=== PATIENT | female | born 1955 | race African-American/Black ===

== ENCOUNTER 2016-12-04 06:54 | Inpatient (IN) | payer OTHER ==
[~2016-12-04] VITALS: Ht 165.1 cm; Wt 55.3 kg
--- NOTE | ~2016-12-04 | HC ---
[facility] [place] [address] CONSULTATION Name: ARIN ANDRADE Room #: 407-P [facility] IN .R.#: [id number] Admission: 12/04/16 Attend Phys: Cody Prince MD Discharge: 12/05/16 Date of : 57 Report #: [id number] THIS REPORT FOR: //name// CC: Cody Adames DATE OF SERVICE: 12/04/2016 REASON FOR CONSULTATION: End-stage renal disease requiring hemodialysis. HISTORY OF PRESENT ILLNESS: This is a 61-year-old female who came in from the Emergency Room complaining originally of sore throat, but also some abdominal discomfort. She has end-stage renal disease and is a chronic hemodialysis patient. She dialyzes normally at the [facility] by Daniel. We have seen her on previous hospitalizations. She is due for dialysis on the afternoon of admission and she last dialyzed 2 days previously on 12/02/2016. The patient has end-stage renal disease and recently returned to dialysis. She had had a kidney transplant for about 12 years; that was originally done in [place], [place]. She started back on dialysis in 07/2016. During a recent hospitalization, during the middle of 10/2016, she was having worsening abdominal pain and we realized that she was having progressive rejection of her no longer used kidney transplant. She was eventually transferred to [facility] and she had a transplant nephrectomy of that kidney. She has been recovering from that, but it sounds like some of her abdominal discomfort is residual from that surgery. 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 PAST MEDICAL HISTORY: Kidney transplant, ESRD and lupus as noted above. She has had 2 prior hip transplants, appendectomy; bowel obstruction resulting in a colostomy placement, this is in the left lower quadrant. She also has some COPD. MEDICATIONS ON ADMISSION: Allopurinol 100 mg daily, amlodipine 5 mg daily, aspirin 81 mg daily, carvedilol 25 mg b.i.d., gabapentin 100 mg b.i.d., oxycodone, pantoprazole 40 mg b.i.d., prednisone 2.5 mg daily on a taper and she tacrolimus, although it can be stopped with her transplant nephrectomy. ALLERGIES: CEPHALASPORIN and COUMADIN. FAMILY HISTORY: Noncontributory. SOCIAL HISTORY: The patient is single, lives in [place], [place]. She is disabled. REVIEW OF SYSTEMS: Denies dyspnea, cough or chest pain. She says her most recent dialysis was uneventful. She is unaware of fevers, chills or sweats. She has been having some abdominal pain. No recent problems with edema. [facility] [address] [place] [address] CONSULTATION Name: ARIN ANDRADE Avis Room #: 407-P [facility] IN M.R.#: [id number] Admission: 12/04/16 Attend Phys: Cody Prince MD Discharge: 12/05/16 Date of : 57 Report #: [id number] PHYSICAL EXAMINATION: GENERAL: She is awake, alert and oriented, without substantial symptoms. VITAL SIGNS: Blood pressure 188/90, heart rate 78, temperature 98.3, respiratory rate is 18, oxygen saturation 97%. HEENT: Unremarkable. NECK: Shows her tunneled dialysis catheter in place. CHEST: Clear. CARDIOVASCULAR: Heart has a regular rate and rhythm. ABDOMEN: Has active bowel sounds. Her right lower quadrant incision has healed nicely, it is minimally tender. EXTREMITIES: Show no peripheral edema. NEUROLOGIC: She is grossly intact. LABORATORY DATA: Labs on admission, sodium 131, potassium 5.0, chloride 93, bicarbonate 22, BUN 26, creatinine 7.5, total bilirubin 0.8, lipase 120, calcium 10.0, alkaline phosphatase 128, AST 21, ALT 7, albumin 2.9, total protein 7.3, white count 8.7, hemoglobin 12.0, hematocrit 35.0 and platelets 198,000. ASSESSMENT: 1. End-stage renal disease. Due for dialysis later today (12/04/2016), orders have been placed and we will get her dialyzed. 2. Recent nephrectomy of right iliac kidney transplant. Again, she no longer needs to be on her tacrolimus immunosuppression. We will continue to taper her prednisone slowly. 3. Abdominal pain, no positive findings on exam today. 4. Hypertension. She needs dialysis and volume removal to control that. PLAN: 1. Dialysis later today. 2. We will follow along the patient's care. <ELECTRONICALLY SIGNED> By: Tanmay Tapia MD 12/08/16 0725 1241 2216 Tanmay Tapia MD /nt
[~2016-12-04 06:54] MED LIST: ALLOPURINOL 10100 M1 PO; AMLODIPINE BESYL5 MG PO; ASPIR 8181 MG PO; BYSTOLIC10 MG; CIPRO500 MG PO; COREG25 MG PO; DILAUDID1 MG/1 ML IV PUSH; FLAGYL500 MG PO; FLEXERIL PO; GABAPENTIN100 MG; K-DUR 20 MEQ T20 MEQ; LIPITOR40 MG; NORCO 7.5-3251 EACH PO; OXYCODONE HCL 55 MG PO; PERCOCET 5-3251 EACH PO; PREDNISONE 10 M10 M1 PO; PROTONIX40 M1 PO; TACROLIMUS1 MG; VANCOMYCIN100 MG/M1 PO; ZOFRAN ODT4 MG PO
[2016-12-04 06:56] VITALS: BP 233/102
[2016-12-04 07:28] LABS: MCH 32.1 pg (26.0-34.0); MCHC 34.3 g/dL (28.0-37.0); MCV 93.7 fL (80.0-100.0); PLATELET COUNT 198 thou/uL (150-400); RBC 3.73 mil/uL (4.20-5.00); RDW 20.6 % (10.5-14.5); WBC 8.7 thou/uL (4.0-11.0)
[2016-12-04 07:29] LABS: MANUAL DIFF YES
[2016-12-04 07:40] LABS: CREATININE 7.5 mg/dL (0.6-1.0)
[2016-12-04 07:44] LABS: ALBUMIN 2.9 g/dL (3.4-5.0); DIRECT BILIRUBIN 0.1 mg/dL (<0.1-0.3); TOTAL BILIRUBIN 0.8 mg/dL (<0.1-1.0); TOTAL PROTEIN 7.3 g/dL (6.4-8.2)
[2016-12-04 07:55] LABS: ABSOLUTE NEUTROPHILS 4.5 thou/uL (1.4-8.2); ANISOCYTOSIS 2+; ATYPICAL LYMPHS 1 %; TOTAL CELL COUNT 100
[2016-12-04 10:08] VITALS: BP 188/88
[2016-12-04 11:30] VITALS: BP 188/90
[2016-12-04 17:00] VITALS: BP 144/85
[2016-12-04 19:56] VITALS: BP 196/89
[2016-12-05] VITALS (11 sets, daily range): BP systolic 146–176; BP diastolic 67–88
[2016-12-05 05:15] LABS: ALBUMIN 2.6 g/dL (3.4-5.0); CALCIUM 9.8 mg/dL (8.5-10.1); MAGNESIUM 1.7 mg/dL (1.8-2.4); POTASSIUM 4.3 mmol/L (3.5-5.1); TOTAL BILIRUBIN 0.8 mg/dL (<0.1-1.0); TOTAL PROTEIN 6.5 g/dL (6.4-8.2)
[2016-12-05 05:51] LABS: CREATININE 5.6 mg/dL (0.6-1.0)
[2016-12-05] MEDS ORDERED: NYSTATIN 1100000 U/M PO (13:05)
[2016-12-05] MEDS ORDERED: LIDOCAINE VISC100 M1 PO (13:05)
== END 2016-12-05 16:30 | disposition home or self-care (01) | DRG 157 ==
LOC: ER 06:54 → 4N 09:08 → EROBS 09:08 → 4N 10:09
PROVIDERS: Emergency Medicine; Nurse Practitioner
PROC: 5A1D00Z (ICD-10-PCS; principal; 2016-12-04)
DX: B37.0 Candidal stomatitis (principal); N18.6 End stage renal disease; I12.0 Hypertensive chronic kidney disease with stage 5 chronic kidney disease or end stage renal disease; I16.1 Hypertensive emergency; E44.0 Moderate protein-calorie malnutrition; Z94.0 Kidney transplant status; J02.9 Acute pharyngitis, unspecified; F17.210 Nicotine dependence, cigarettes, uncomplicated; M32.9 Systemic lupus erythematosus, unspecified; Z96.649 Presence of unspecified artificial hip joint; J44.9 Chronic obstructive pulmonary disease, unspecified; E16.2 Hypoglycemia, unspecified; D63.8 Anemia in other chronic diseases classified elsewhere; Z79.82 Long term (current) use of aspirin; Z79.899 Other long term (current) drug therapy; Z90.49 Acquired absence of other specified parts of digestive tract; Z93.2 Ileostomy status; Z88.8 Allergy status to other drugs, medicaments and biological substances; Z93.3 Colostomy status; Z82.49 Family history of ischemic heart disease and other diseases of the circulatory system; Z68.20 Body mass index [BMI] 20.0-20.9, adult; Z99.2 Dependence on renal dialysis
CPT/HCPCS: 10091; 32100

== ENCOUNTER 2016-12-13 11:02 | Inpatient (IN) | payer OTHER ==
[~2016-12-13] VITALS: Ht 170.2 cm; Wt 48.2 kg
[2016-12-13] VITALS (9 sets, daily range): BP systolic 117–154; BP diastolic 61–118
--- NOTE | ~2016-12-13 | EEG ---
[facility] [place] [address] ELECTROENCEPHALOGRAM Name: ARIN ANDRADE Room #: 241-P ADM IN M.R.#: [id number] Admission: 12/13/16 Attend Phys: Spenser Mejia MD Discharge: Date of : 57 Report #: [id number] THIS REPORT FOR: //name// CC: Spenser Mejai [facility] physician/PCP DATE OF SERVICE: 12/13/2016 This patient is being evaluated for altered mental status. EEG is being done to further evaluate that. EEG was done by placing the electrodes by standard 10-20 system of electrode placement. Both referential and sequential montages were used for recording. The EEG is masked by a lot of artifact and is very difficult to interpret. Only small portion of this EEG is interpretable and that appeared to be showing a background activity of about 5-6 Hz and about 5-10 microvolts. Since the activity is low voltage and is masked by a lot of artifact, background activity is difficult to tell. I can tell when the patient is awake or asleep. Photic stimulation is unremarkable. IMPRESSION: This is a suboptimal EEG because it is intermixed with a lot of artifact. EEG is abnormal because it is very poorly formed. That is a nonspecific abnormality, which can occur with encephalopathy, effect of psychotropic medication, dementia, etc. Clinical correlation is recommended. Thank you very much for this referral. <ELECTRONICALLY SIGNED> By: Suleiman Black MD 12/14/16 0731 [id number] MD lissett Mendoza
--- NOTE | ~2016-12-13 | HC ---
[facility] [place] [address] CONSULTATION Name: ARIN ANDRADE Room #: 455-P ADM IN M.R.#: [id number] Admission: 12/13/16 Attend Phys: Spenser Mejia MD Discharge: Date of : 57 Report #: [id number] THIS REPORT FOR: //name// CC: Spenser Mejia [facility] physician/PCP DATE OF SERVICE: 12/14/2016 PATIENT IDENTIFICATION: This 61-year-old female with known end-stage renal disease is seen in renal consultation in the intensive care unit after presenting with loss of consciousness. She has a known history of chronic kidney disease and has been hospitalized recently at [facility]. She dialyzes at [facility]. She has a history of previous failed acute kidney transplant. She has had a previous small-bowel resection with a colostomy in the left lower quadrant. She has known dialysis, diet and medication noncompliance. The patient was brought in by her sister because she was unresponsive. She was in a state when initially presenting. PAST MEDICAL HISTORY: Remarkable for end-stage renal disease, on dialysis Thursday, and Thursday. She has a previous kidney transplant. She has a remote history of lupus. She has a previous colostomy. She has COPD and is status post prior cholecystectomy. MEDICATIONS: On admission include gabapentin, amlodipine, prednisone, tacrolimus, aspirin, pantoprazole, and carvedilol. ALLERGIES: Reported to CEPHALOSPORIN. PERSONAL AND SOCIAL HISTORY: The patient smokes an unknown quantity. She has no known prior history of alcohol or drug abuse. REVIEW OF SYSTEMS: Unobtainable. FAMILY HISTORY: Unobtainable. PHYSICAL EXAMINATION: GENERAL: Reveals a chronically ill, debilitated, poorly responsive female. She does open her eyes to command. She does move extremity symmetrically. HEENT: The head is normocephalic and atraumatic. The sclerae are white. The pharynx is benign. NECK: Supple. LUNGS: Lake are grossly clear to percussion and auscultation. CARDIOVASCULAR: Reveals a regular rate and rhythm. ABDOMEN: Reveals a colostomy in place, which is nontender. There is no [facility] [address] [place] [address] CONSULTATION Name: ARIN ANDRADE Room #: 455-[facility] IN [facility]#: [id number] Admission: 12/13/16 Attend Phys: Spenser Mejia MD Discharge: Date of : 57 Report #: [id number] surrounding erythema. NEUROLOGIC: Reveals the patient to be sluggishly responsive and quite lethargic. There is no evidence of focal neurologic deficit. LABORATORY STUDIES: Available at this time include sodium 142, potassium 5.0, chloride 105, CO2 of 28, BUN 32, creatinine , and glucose 110. White blood cell count 11,200, hemoglobin 11.2, hematocrit 33.8, and platelet count 73,000. ASSESSMENT: 1. End-stage renal disease, on maintenance hemodialysis. We will dialyze the patient on Thursday as there are no indications for acute dialysis at this time. Her dialysis compliance is unclear as of late. 2. Loss of consciousness with altered mental status, etiology unclear. 3. History of failed renal transplantation, on tapering immunosuppression. 4. Status post colostomy. PLAN: We will follow the patient closely and maintain dialysis support for her while hospitalized. Please see orders. <ELECTRONICALLY SIGNED> By: Zach Montoya MD 12/16/16 1721 0606 1238 Zach Montoya MD /nt
--- NOTE | ~2016-12-13 | HC ---
[facility] [place] [address] CONSULTATION Name: ARIN ANDRADE Room #: 455-P ADM IN .R.#: [id number] Admission: 12/13/16 Attend Phys: Spenser Mejia MD Discharge: Date of : 57 Report #: [id number] THIS REPORT FOR: //name// CC: Spenser Mejia [facility] physician/PCP DATE OF SERVICE: 12/17/2016 HISTORY OF PRESENT ILLNESS: The patient is a 61-year-old -Citizen [place] female with a prior history of noncompliance, end-stage renal disease, failed kidney transplant, and systemic lupus who was admitted with unresponsiveness. She was brought in by her sister. She was noted to have an encephalopathy post-seizure. She has been seen by neurology and is on Keppra. She also was noted to have aspiration pneumonia. Hypertension is of poor control and internal medicine is involved. We are seeing her in rehabilitation medicine consultation. PAST MEDICAL HISTORY: Includes end-stage renal disease, on maintenance hemodialysis, prior kidney transplant, which she was noted to have failed, history lupus, hypertension, status post colostomy for small-bowel resection, COPD, and cholecystectomy. MEDICATIONS: Please see the full medication listing. ALLERGIES: CEPHALOSPORIN. HABITS: Positive tobacco, no history of ETOH or drug abuse. SOCIAL HISTORY: Lives in an apartment alone, premorbid cane or walker ambulator. She notes she is planning on going to stay with her sister and she seems okay with that. Noted to have 4 steps in. FAMILY HISTORY: Noncontributory. REVIEW OF SYSTEMS: No current complaints of chest pain, shortness of breath, or abdominal discomfort. Complains of overall generalized weakness, both upper and lower extremities. She did not voice any complaints, headache or other complaints in this regard. PHYSICAL EXAMINATION: GENERAL: She is a 61-year-old -[place]izen [place] female, in no obvious distress. VITAL SIGNS: Last recorded temperature 98.3, pulse 77, respirations 18, and blood pressure 215/97. NEUROLOGIC: She is alert. There is a definite latency to her responses and she appears unsure some of her answers. She does follow basic 1 step commands. Facies are symmetric. She is of slender build. [facility] [address] [place] [address] CONSULTATION Name: ARIN ANDRADE Room #: 455-[facility] IN ..#: [id number] Admission: 12/13/16 Attend Phys: Spenser Mejia MD Discharge: Date of : 57 Report #: [id number] EXTREMITIES: She has functional range of motion of both upper and lower extremities. Strength is grade 3+/5. DTRs are trace to 1. Lower extremities, no focal calf swelling, functional range of motion with strength grade 3+/5. DTRs are trace to 1. There is no clonus. Sensation appeared reasonably intact large toe to proprioception. There is no focal calf swelling. No distal lower extremity edema. She has the prior left colostomy bag as far as her abdomen. Functionally, she is max assist for sitting balance, supine to sit is max assist, bed mobility is mod to max assist. She has sat at the edge of bed for 4 minutes. ASSESSMENT: A 61-year-old -Citizen [place] female with the following problem list: 1. Toxic metabolic encephalopathy. There may be a hypoxic component as well and she is noted to be post-seizure. 2. End-stage renal disease. 3. Failed kidney transplant. 4. Lupus erythematosus. 5. Prior colostomy for small-bowel obstruction. 6. Tobacco abuse. 7. Initial unresponsiveness for which she was admitted. 8. Aspiration pneumonia. PLAN: Therapy evaluations are continuing. We are assessing her tolerance and functional needs regarding rehabilitation. I am uncertain at this time if she will be a [address] [place] [address] rehabilitation candidate, but we will follow along with you and see how she does. By: 1142 1556 Erasmo Dunn MD /nt
--- NOTE | ~2016-12-13 | H ---
[facility] [place] [address] HISTORY AND PHYSICAL Name: ARIN ANDRADE Room #: 241-P ADM IN M.R.#: [id number] Admission: 12/13/16 Attend Phys: Spenser Mejia MD Discharge: Date of : 57 Report #: [id number] THIS REPORT FOR: //name// CC: Spenser Mejia [facility] physician/PCP REASON FOR ADMISSION: Found unresponsive. HISTORY OF PRESENT ILLNESS: The history was obtained from reviewing the previous medical record, she is well known to me. Unfortunately, this is a very noncompliant patient with past medical history of end-stage renal disease, failed kidney transplantation, lupus. She dialyzes with [facility]. She had a small bowel resection with colostomy in the left lower quadrant. I have known her from 2 previous hospitalizations. She keeps coming in with elevated blood pressure, tachycardia. She was ruled out for sepsis in the past. She was brought by her sister because she was unresponsive. Unfortunately, the patient was found also to not have her colostomy bag and stool was all over her body. She is not able to provide me with any detailed history previously. She was maintained on chronic immunosuppression and she was thought to have what seems to be rejection. She did not have any nephrectomies of the transplanted kidney. On presentation to the emergency room, she was found to be hypoxemic. She was also found to have elevated white blood cell count at 18,000. As I have mentioned, unfortunately the details of the current history of present illness are not available. PAST MEDICAL HISTORY: 1. End-stage renal disease, maintained on dialysis every Thursday, Thursday. 2. Kidney transplant. 3. Lupus. 4. Hypertension. 5. Status post colostomy for small-bowel resection. 6. COPD. 7. Cholecystectomy. LISTED MEDICATIONS: 1. Gabapentin. 2. Amlodipine. 3. Prednisone. 4. Tacrolimus. 5. Aspirin. 6. Pantoprazole. 7. Carvedilol. ALLERGIES: Listed to CEPHALOSPORINS. SOCIAL HISTORY: She continues to smoke. No drug or alcohol abuse. [facility] [address] [place] [address] HISTORY AND PHYSICAL Name: ARIN ANDRADE Avis Room #: 241-P [facility].#: [id number] Admission: 12/13/16 Attend Phys: Spenser Mejia MD Discharge: Date of : 57 Report #: [id number] REVIEW OF SYSTEMS: Unobtainable given the patient's chronic current medical conditions. PHYSICAL EXAMINATION: GENERAL: She is completely disoriented to time, place, person. VITAL SIGNS: Blood pressure was 170/90. She was tachycardic with a . HEAD AND NECK: Dry mucous membrane. CHEST: Decreased air entry bilaterally with crackles. There is a left IJ tunneled catheter. CARDIOVASCULAR: Tachycardic with a soft systolic murmur. ABDOMEN: Left colostomy with no bag . LOWER EXTREMITIES: No edema. LABORATORY VALUES: Reviewed. Lactic acid 2.4. BMP from today revealed a potassium of 4.1, BUN is 26 and a creatinine of 7.7. Calcium was markedly elevated. White blood cell 18,000. Hemoglobin 15.8. EKG with no acute changes. Blood gas with hypoxia. ASSESSMENT, IMPRESSION AND PLAN: 1. End-stage renal disease. 2. Tachycardia. 3. Encephalopathy. 4. Elevated white blood cell count. 5. History of failed kidney transplant. 6. Immunosuppressive status. 7. Central stenosis. 8. Status post left IJ tunneled catheter. 9. Noncompliance. This is a very similar presentation to her presentation in the past. 1. Admission. 2. Blood cultures. 3. Appropriate antibiotic therapy. 4. We will give one dose of vancomycin and start on Zosyn. 5. Blood pressure control. 6. We will gave 1 liter normal saline given her hemoglobin and calcium values consistent with dehydration. 7. Nephrology consultations. 8. She previously had what seems to be transplant rejection. Repeat CT revealed the transplant kidney is completely atrophic. We will keep her on low dose immunosuppressive medications. [address] [address] HISTORY AND PHYSICAL Name: ARIN ANDRADE Room #: [facility] IN ..#: [id number] Admission: 12/13/16 Attend Phys: Spenser Mejia MD Discharge: Date of : 57 Report #: [id number] This is a difficult situation with recurrent admissions, recurrent social issues that will need to be addressed with the social workers and the case finisher. <ELECTRONICALLY SIGNED> By: Spenser Mejia MD 12/14/16 0738 1303 1504 Spenser Mejia MD /nt
--- NOTE | ~2016-12-13 | EKG ---
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: YIFAN : 1955 Requested By: Myron Puentes Order Number: [id number] MD: Everardo Singh Measurements Intervals [place] Rate: 124 P: 103 CT: 157 QRS: 94 QRSD: 73 T: 30 QT: 335 QTc: 482 Interpretive Statements Sinus tachycardia Right axis deviation Consider left ventricular hypertrophy Compared to ECG 09/24/2016 15:39:47 Right-axis deviation now present Electronically Signed On 12-14-2016 11:04:12 CDT by Everardo Singh [email or web address] <ELECTRONICALLY SIGNED> By: Everardo Singh MD 12/14/16 1104 D: 04/1115 15 Everardo Singh MD /LEOPOLDO
[~2016-12-13 11:02] MED LIST changes: +LIDOCAINE VISC100 M1 PO; +NYSTATIN 1100000 U/M PO
[2016-12-13 11:32] LABS: ABG SAMPLE TYPE ARTERIAL; BE(vivo) 3.5 mmol/L (-2 to +3); HCO3 26.5 mmol/L (22.0-26.0); LACTATE 2.51 mmol/L (0.5-2.0); O2(CT) 21.1 mL/dL (15.0-23.0); O2Hb 91.8 % (92.0-98.0); PCO2 35.3 mmHg (35.0-45.0); PO2 70.1 mmHg (80.0-100.0); pH 7.493 (7.360-7.450); sO2 95.4 % (92.0-98.0); tCO2 27.6 mmol/L (24.0-30.0)
[2016-12-13 11:33] LABS: STICK SITE R.RADIAL
[2016-12-13 12:37] LABS: HEMATOCRIT 48.4 % (37.0-47.0); HEMOGLOBIN 15.8 gm/dL (12.0-15.0); MCH 30.2 pg (26.0-34.0); MCHC 32.6 g/dL (28.0-37.0); MCV 92.5 fL (80.0-100.0); RBC 5.23 mil/uL (4.20-5.00)
[2016-12-13 12:41] LABS: MANUAL DIFF YES
[2016-12-13 12:48] LABS: POTASSIUM 4.1 mmol/L (3.5-5.1)
[2016-12-13 12:50] LABS: CALCIUM 12.2 mg/dL (8.5-10.1)
[2016-12-13 12:52] LABS: CREATININE 7.7 mg/dL (0.6-1.0)
[2016-12-13 13:06] LABS: ABSOLUTE NEUTROPHILS 14.6 thou/uL (1.4-8.2); ANISOCYTOSIS 1+; TOTAL CELL COUNT 100
[2016-12-13 13:07] LABS: POLYCHROMASIA OCCASIONAL
[2016-12-13 13:14] LABS: PLATELET COUNT 99 thou/uL (150-400)
[2016-12-13 13:34] LABS: ALBUMIN 2.6 g/dL (3.4-5.0); CALCIUM 11.7 mg/dL (8.5-10.1); CREATININE 7.6 mg/dL (0.6-1.0); PHOSPHORUS 5.8 mg/dL (2.5-4.9); POTASSIUM 4.2 mmol/L (3.5-5.1)
[2016-12-13 22:27] LABS: ABG SAMPLE TYPE ARTERIAL; BE(vivo) -0.9 mmol/L (-2 to +3); HCO3 23.2 mmol/L (22.0-26.0); LACTATE 1.77 mmol/L (0.5-2.0); O2(CT) 17.1 mL/dL (15.0-23.0); O2Hb 90.1 % (92.0-98.0); PCO2 36.6 mmHg (35.0-45.0); PO2 62.5 mmHg (80.0-100.0); sO2 92.5 % (92.0-98.0); tCO2 24.3 mmol/L (24.0-30.0)
[2016-12-13 22:28] LABS: STICK SITE L.BRACHIAL
[2016-12-14] VITALS (16 sets, daily range): BP systolic 122–179; BP diastolic 54–117
[2016-12-14 04:29] LABS: HEMATOCRIT 33.8 % (37.0-47.0); MCH 30.9 pg (26.0-34.0); MCV 93.5 fL (80.0-100.0); RBC 3.62 mil/uL (4.20-5.00); RDW 19.7 % (10.5-14.5); WBC 11.2 thou/uL (4.0-11.0)
[2016-12-14 04:33] LABS: HEMOGLOBIN 11.2 gm/dL (12.0-15.0)
[2016-12-14 08:16] LABS: CALCIUM 9.9 mg/dL (8.5-10.1); CREATININE 8.1 mg/dL (0.6-1.0)
[2016-12-15 00:09] VITALS: BP 153/75
[2016-12-15 04:13] VITALS: BP 170/98
[2016-12-15 07:57] LABS: HEMOGLOBIN 10.2 gm/dL (12.0-15.0); MCHC 32.9 g/dL (28.0-37.0); MCV 94.1 fL (80.0-100.0); RBC 3.3 mil/uL (4.20-5.00); RDW 19.7 % (10.5-14.5); WBC 8.9 thou/uL (4.0-11.0)
[2016-12-15 08:05] VITALS: BP 147/64
[2016-12-15 08:12] LABS: ALBUMIN 2.1 g/dL (3.4-5.0); CALCIUM 9.7 mg/dL (8.5-10.1); POTASSIUM 3.9 mmol/L (3.5-5.1); TOTAL BILIRUBIN 0.6 mg/dL (<0.1-1.0)
[2016-12-15 08:13] LABS: CREATININE 9.2 mg/dL (0.6-1.0)
[2016-12-15 11:04] VITALS: BP 185/87
[2016-12-15 15:48] VITALS: BP 147/63
[2016-12-15 19:10] VITALS: BP 145/63
[2016-12-16 04:01] VITALS: BP 181/76
[2016-12-16 07:27] VITALS: BP 182/81
[2016-12-16 17:48] VITALS: BP 178/78
[2016-12-16 19:59] VITALS: BP 164/70
[2016-12-17 04:19] VITALS: BP 218/93
[2016-12-17 05:44] VITALS: BP 188/72
[2016-12-17 12:55] VITALS: BP 162/81
[2016-12-17 16:42] VITALS: BP 174/74
[2016-12-17 19:33] VITALS: BP 156/79
[2016-12-18 00:06] VITALS: BP 158/74
[2016-12-18 05:38] VITALS: BP 173/86
[2016-12-18 08:50] VITALS: BP 161/70
[2016-12-18 12:46] VITALS: BP 149/61
[2016-12-18] MEDS ORDERED: CLONIDINE0.1 PO (13:35)
[2016-12-18] MEDS ORDERED: COZAAR 50 MG TA50 M1 PO (13:35)
[2016-12-18] MEDS ORDERED: KEPPRA 500 MG500 M1 PO (13:36)
[2016-12-18] MEDS ORDERED: AUGMENTIN 875875 MG PO (13:41)
[2016-12-18 17:33] VITALS: BP 171/81
== END 2016-12-18 17:57 | DRG 177 ==
LOC: ER 11:02 → EROBS 13:09 → 4W 13:09 → ICU 16:00 → 4W 12-14 12:20
PROVIDERS: Emergency Medicine; Hospitalist; Nurse Practitioner; Physician Assistant
PROC: 5A1D60Z (ICD-10-PCS; principal; 2016-12-18)
DX: J69.0 Pneumonitis due to inhalation of food and vomit (principal); N18.6 End stage renal disease; G92 Toxic encephalopathy; I12.0 Hypertensive chronic kidney disease with stage 5 chronic kidney disease or end stage renal disease; Z94.0 Kidney transplant status; R56.9 Unspecified convulsions; Z96.649 Presence of unspecified artificial hip joint; F17.210 Nicotine dependence, cigarettes, uncomplicated; D69.6 Thrombocytopenia, unspecified; D64.9 Anemia, unspecified; E83.52 Hypercalcemia; E16.2 Hypoglycemia, unspecified; L93.0 Discoid lupus erythematosus; J44.9 Chronic obstructive pulmonary disease, unspecified; Z91.19 Patient's noncompliance with other medical treatment and regimen; Z99.2 Dependence on renal dialysis; Z93.3 Colostomy status; Z88.1 Allergy status to other antibiotic agents; Z90.49 Acquired absence of other specified parts of digestive tract; Z88.8 Allergy status to other drugs, medicaments and biological substances; Z93.2 Ileostomy status
CPT/HCPCS: 10045; 10203; 32100

== ENCOUNTER 2016-12-29 08:32 | Emergency (ER) | payer OTHER ==
[~2016-12-29] VITALS: Ht 160 cm; Wt 45.4 kg
[~2016-12-29 08:32] MED LIST changes: +AUGMENTIN 500-1 EACH PO; +AUGMENTIN 875875 MG PO; +CARVEDILOL6.25 MG PO; +CLONIDINE0.1 PO; +COZAAR 50 MG TA50 M1 PO; +KEPPRA 500 MG500 M1 PO
[2016-12-29 10:05] LABS: CALCIUM 9.2 mg/dL (8.5-10.1); CREATININE 10.1 mg/dL (0.6-1.0)
[2016-12-29 10:08] LABS: POTASSIUM 5.2 mmol/L (3.5-5.1)
[2016-12-29 12:39] VITALS: BP 157/74
== END 2016-12-29 15:39 | disposition home or self-care (01) ==
LOC: ER 08:32
PROVIDERS: Emergency Medicine
DX: Z49.01 Encounter for fitting and adjustment of extracorporeal dialysis catheter (principal); M32.9 Systemic lupus erythematosus, unspecified; Z96.649 Presence of unspecified artificial hip joint; I10 Essential (primary) hypertension; J45.909 Unspecified asthma, uncomplicated; Z90.49 Acquired absence of other specified parts of digestive tract; Z98.890 Other specified postprocedural states; Z86.69 Personal history of other diseases of the nervous system and sense organs; Z88.1 Allergy status to other antibiotic agents; Z88.8 Allergy status to other drugs, medicaments and biological substances; F17.210 Nicotine dependence, cigarettes, uncomplicated

== ENCOUNTER 2017-06-24 12:50 | Emergency (ER) | payer OTHER ==
[~2017-06-24] VITALS: Ht 160 cm; Wt 51.7 kg
--- NOTE | ~2017-06-24 | EKG ---
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
[~2017-06-24 12:50] MED LIST changes: +ATORVASTATIN CA40 MG PO; +CARAFATE 1 GM TA1 G1 PO; +CLONAZEPAM 0.50.5 M1 PO; +ELIQUIS2.5 MG PO; +NORCO 5-325 TA1 EACH PO; +PROZAC20 MG PO
[2017-06-24 13:40] LABS: HEMATOCRIT 36.4 % (37.0-47.0); HEMOGLOBIN 12.2 gm/dL (12.0-15.0); MCH 29.5 pg (26.0-34.0); MCHC 33.4 g/dL (28.0-37.0); MCV 88.3 fL (80.0-100.0); RBC 4.12 mil/uL (4.20-5.00); RDW 18.3 % (10.5-14.5)
[2017-06-24 13:44] LABS: ANION GAP 10 mmol/L (7-16); BUN 34 mg/dL (7-18); CALCIUM 9.5 mg/dL (8.5-10.1); CHLORIDE 98 mmol/L (98-107); CO2 28 mmol/L (21-32); CREATININE 8.4 mg/dL (0.6-1.0); GLUCOSE 78 mg/dL (74-106); POTASSIUM 4.8 mmol/L (3.5-5.1); SODIUM 136 mmol/L (136-145)
[2017-06-24 13:53] LABS: TROPONIN-I < 0.04 ng/mL (<0.06)
== END 2017-06-24 17:34 | disposition home or self-care (01) ==
LOC: ER 12:50
PROVIDERS: Emergency Medicine
DX: E83.42 Hypomagnesemia (principal); R55 Syncope and collapse; R51 Headache; M32.9 Systemic lupus erythematosus, unspecified; I10 Essential (primary) hypertension; J44.9 Chronic obstructive pulmonary disease, unspecified; F17.210 Nicotine dependence, cigarettes, uncomplicated; Z90.49 Acquired absence of other specified parts of digestive tract; Z88.1 Allergy status to other antibiotic agents; Z88.8 Allergy status to other drugs, medicaments and biological substances

== ENCOUNTER 2017-10-30 08:18 | Inpatient (IN) | payer OTHER ==
[~2017-10-30] VITALS: Ht 160 cm; Wt 60.6 kg
--- NOTE | ~2017-10-30 | HC ---
[facility] [place] [address] CONSULTATION Name: ARIN ANDRADE Room #: 356-P ADM IN M.R.#: [id number] Admission: 10/30/17 Attend Phys: Lukas Aponte MD Discharge: Date of : 57 Report #: [id number] THIS REPORT FOR: //name// CC: Lukas Oakley REASON FOR CONSULTATION: End-stage renal disease. REASON FOR PRESENTATION: Abdominal pain. HISTORY OF PRESENT ILLNESS: This is a very well-known patient to me. She is status post failed kidney transplant with noncompliance. She is maintained on hemodialysis every Thursday, and Thursday. She has a very complicated hospital course with repeated hospitalizations for numerous issues including C. diff colitis, what was thought to be rejection of her kidney in the past, central stenosis of her central vessels. She had known seizures too. She dialyzes every Thursday, and Thursday. She missed her dialysis yesterday because of abdominal pain. She presented to the Emergency Room with right-sided abdominal pain. She describes the pain as crampy. This was radiating to the right flank area. Along with that, she reported that she had some blood streaks with her bowel movement. No nausea or vomiting, but she had decreased p.o. intake. She denies fever. She is admitted for further evaluation and management after the CT showed some abnormalities and those are well delineated in the CT report. I am being asked to manage her end-stage renal disease. PAST MEDICAL HISTORY: 1. End-stage renal disease. 2. Central venous stenosis 3. Seizure disorder. 4. Status post colostomy. 5. Bilateral hip prosthesis. 6. Failed kidney transplant. 7. Appendicitis. 8. Hypertension. 9. Cholecystectomy. 10. Cataract surgeries. 11. Remote history of atrial fibrillation. 12. Questionable history of DVT in the past. SOCIAL HISTORY: She is an everyday smoker. She used marijuana couple of weeks ago. FAMILY HISTORY: Significant for hypertension. MEDICATIONS: 1. Prednisone. [facility] [address] [place] [address] CONSULTATION Name: ARIN ANDRADE Room #: 356-[facility] IN ..#: [id number] Admission: 10/30/17 Attend Phys: Lukas Aponte MD Discharge: Date of : 57 Report #: [id number] 2. Eliquis. 3. Atorvastatin. 4. Keppra. REVIEW OF SYSTEMS: GENERAL: No fever or chills. CARDIOVASCULAR: No chest pain or palpitation. PULMONARY: No cough or hemoptysis. GASTROINTESTINAL: As per the history of present illness. PHYSICAL EXAMINATION: GENERAL: She is alert and oriented. VITAL SIGNS: Blood pressure is as expected elevated at 195/140. HEAD AND NECK: Poor dental hygiene with a left-sided IJ catheter. CHEST: No crackles. CARDIOVASCULAR: Regular with no rub. ABDOMEN: Slight tenderness in the right iliac fossa. Scar from the previous surgeries. Colostomy present. LABORATORY DATA: Laboratory values reviewed. Most recent labs revealed a sodium of 138, potassium 3.9, chloride 99, carbon dioxide 25, BUN 52 and creatinine 12.4. White blood cell count was 6.0 and hemoglobin is 12.4. ASSESSMENT, IMPRESSION AND PLAN: 1. End-stage renal disease. 2. Hypertension. 3. Abdominal pain. 4. Failed kidney transplant. 5. Noncompliance. 6. Clostridium difficile colitis in the past. 7. Status post colostomy for bowel blockage. 8. Deep venous thrombosis and pulmonary embolism in the past. 9. Central stenosis. 10. Abnormal CT scan findings as delineated in the CT report. 11. We will arrange for the patient to have dialysis today. Discussed with the GI team, plan is to proceed with colonoscopy tomorrow. Surgery will evaluate. Resume seizure medications. 12. ____ lesion seems to be collateral vessels from her central stenosis and possible inferior vena cava occlusion given the fact that she has occluded almost all of her central veins in the past including both upper and lower extremities. 13. GI is working her abdominal pain and ruling out C. diff. She has history of [address] [address] CONSULTATION Name: ARIN ANDRADE Room #: 356-P [facility] IN ..#: [id number] Admission: 10/30/17 Attend Phys: Lukas Aponte MD Discharge: Date of : 57 Report #: [id number] narcotic abuse in the past and I am not really sure if this is the current case or not. <ELECTRONICALLY SIGNED> By: Spenser Mejia MD 10/31/17 1151 1842 0423 Spenser Mejia MD /nt
--- NOTE | ~2017-10-30 | S ---
[facility] [place] [address] SURGICAL PATH RPT PROCEDURE Name: BERNARDA ARECHIGA Room #: 349-I ADM IN M.R.#: [id number] Admission: 10/30/17 Date of : 57 Discharge: Report #: [id number] Path Case #: [id number] PATHOLOGY REPORT COLLECTION DATE: 11/02/2017 RECEIVED DATE: 11/02/2017 SUBMITTING PHYS: Dr. Madi Zimmerman OTHER PHYS: Dr. Lukas Oakley SPECIMEN(S) RECEIVED: A.Random colon bx B.Polyp at splenic flexure C.Polyp x2 at sigmoid colon * * * * * * * * * * * * FINAL DIAGNOSIS: A. Large intestine mucosa, random colon rule out ischemia versus colitis, endoscopic biopsy: - Mild active colitis (please see comment). - Negative for dysplasia or malignancy. B. Polyp, at splenic flexure, endoscopic biopsy: - Inflamed tubular adenoma. - Negative for high-grade dysplasia. C. Polyp x 2, sigmoid colon, endoscopic biopsy: - Minute tubular adenoma identified in both fragments sampled. - Negative for high-grade dysplasia. COMMENT: Examination shows acutely inflamed foci within the surface epithelium, as well as scattered cryptitis. The lamina propria cellularity is moderately increased with abundant lymphocytes, abundant plasma cells, as well as an occasional eosinophil. There are no crypt abscesses present. There are no granulomata or parasitic organisms present. Architectural abnormalities are not identified as well. Overall, findings are suggestive of mild active colitis. The differential diagnosis includes active colitis, early inflammatory bowel disease, infectious-type colitis, acute diverticulitis, as well as medication-induced colitis. Findings to suggest ischemic colitis are not present. Please correlate clinically. (IUV:mgr; 11/03/2017) PATHOLOGIST: Brandi Brandt M.D. REPORT ELECTRONICALLY SIGNED BY: Brandi Brandt M.D. DATE/TIME: 11/03/2017 17:19 [address] [place] [address] [place] [address] SURGICAL PATH RPT PROCEDURE Name: BERNARDA ARECHIGA Room #: 349I [facility]#: [id number] Admission: 10/30/17 Date of : 57 Discharge: Report #: [id number] Path Case #: [id number] * * * * * * * * * * * * GROSS PATHOLOGY: A. Received in formalin labeled "Bernarda Arechiga, random colon BX, rule out ischemia versus colitis," are 5 segments of dixon soft tissue measuring 1.7 x 1.3 x 0.3 cm in aggregate dimensions and ranging from 0.3 to 0.5 cm in maximum dimension. The specimen is submitted entirely in cassette A1. B. Received in formalin labeled "Bernarda Arechiga, polyp at splenic flexure," is a segment of dixon soft tissue measuring 0.5 cm in maximum dimension. The specimen is submitted entirely in cassette B1. C. Received in formalin labeled "Bernarda Arechiga, polyp 2 at sigmoid colon," are 2 segments of dixon soft tissue measuring 0.5 x 0.2 x 0.2 cm in aggregate dimensions and ranging from 0.2-0.3 cm in maximum dimension. The specimen is submitted entirely in cassette C1. (TSD; 11/02/2017) CLINICAL HISTORY: Pre-OP DX: Abdominal pain, loose stool, abnormal CT, blood streaked stool Post-OP DX: Colon polyps, diverticulosis INITIAL CPT CODE(S): A; 45897 B; 50401 C; 88656 Professional services performed by [facility] at [facility] [address], [place] [address] Technical services performed by [facility] at [address] [place] [address], [address], [place] [address]. [facility] [address] [place] [address] PHONE: [phone] DIRECTOR: Jeferson Yepez M.D. * * * END OF REPORT * * *
--- NOTE | ~2017-10-30 | EKG ---
[address] [address] ELECTROCARDIOGRAM REPORT Name: ASTRID ANDRADENCISHAN Albarran Room #: 356- ADM IN M.R.#: [id number] Admission: 10/30/17 Attend Phys: Lukas Aponte MD Discharge: Date of : 57 Report #: [id number] THIS REPORT FOR: //name// [facility] Test Date: 2017-10-30 Test Time: 22:46:16 Pat Name: ARIN ANDRADE Department: Room: 356 Gender: F Pediatric Dermatologist: elizabeth : 1955 Requested By: Andressa Leon Order Number: [id number] MD: James Evans Measurements Intervals [place] Rate: 68 P: 87 SD: 194 QRS: 78 QRSD: 88 T: 58 QT: 465 QTc: 495 Interpretive Statements Sinus rhythm Probable left atrial enlargement Probable left ventricular hypertrophy Compared to ECG 06/25/2017 13:44:51 T-wave abnormality no longer present ST (T wave) deviation no longer present Electronically Signed On 10-31-2017 13:27:08 ETIOLOGY TEACHER by James Evans [email or web address] <ELECTRONICALLY SIGNED> By: James Evans MD 10/31/17 1327 [id number] James Evans MD /EPI
--- NOTE | ~2017-10-30 | HC ---
[facility] [place] [address] CONSULTATION Name: ARIN ANDRADE Room #: 356-P ADM IN M.R.#: [id number] Admission: 10/30/17 Attend Phys: Lukas Aponte MD Discharge: Date of : 57 Report #: [id number] THIS REPORT FOR: //name// CC: Lukas Oakley DATE OF SERVICE: 10/30/2017 GENERAL SURGERY CONSULT NOTE REFERRING PROVIDER: Ryley Phillips MD REASON FOR CONSULT: Abdominal pain. HISTORY OF PRESENT ILLNESS: The patient is a 62-year-old female with a history of end-stage renal disease, lupus, failed kidney transplant and history of an ostomy formation with C. diff in the past. It is unknown why the patient truly received an ostomy as the patient is not the best historian. Nonetheless, the patient was residing at [facility], where she has been transitioned to the Emergency Room for her right upper and right lower abdominal pain that has been persistent since Thursday. The patient states the pain radiates to her back and as such, a CT scan of the abdomen and pelvis was obtained showing unusual enhancement in two areas of the liver as well as the possibility of ischemic right colon changes. There is no perforation, no abscess and no free fluid, otherwise. Dr. Phillips is planning for a bowel prep and colonoscopy tomorrow, but due to the possibility of ischemic colitis, I am asked to evaluate as well today. PAST MEDICAL HISTORY: End-stage renal disease, on dialysis; hypertension, lupus, seizure disorder, prior C. diff colitis, ileostomy placement for unknown reasoning. PAST SURGICAL HISTORY: Prior cholecystectomy, total hip replacement, failed kidney transplant, and an ileostomy placement. HOME MEDICATIONS: Prednisone. Eliquis, Prozac, Lipitor, clonazepam, carvedilol, oxycodone IR, Protonix, clonidine, Keppra, hydrocodone and Zofran. ALLERGIES: TO CEPHALOSPORINS AND COUMADIN. FAMILY HISTORY: Reviewed and noncontributory. SOCIAL HISTORY: The patient does smoke 1 pack of cigarettes daily. Denies any alcohol or illicit drug use. REVIEW OF SYSTEMS: [facility] [address] [place] [address] CONSULTATION Name: ARIN ANDRADE Room #: 356-P [facility] IN [facility]#: [id number] Admission: 10/30/17 Attend Phys: Lukas Aponte MD Discharge: Date of : 57 Report #: [id number] GENERAL: The patient denies nocturnal fevers or chills. HEENT: No change in vision, change in hearing. NECK: No swelling or difficulty swallowing. HEART: No chest pain or palpitations. LUNGS: No cough or shortness of breath. ABDOMEN: Abdominal pain, but no nausea or vomiting. GENITOURINARY: No dysuria or hematuria. ENDOCRINE: No polyuria or polydipsia. HEMATOLOGIC: No history of bleeding or easy bruising. EXTREMITIES: No history of weakness or limited range of motion. NEUROLOGIC: No history of syncope or near syncopal episodes. SKIN AND INTEGUMENT: No history of abnormal lesions or moles. PSYCHIATRIC: No history of anxiety or depression. PHYSICAL EXAMINATION: VITAL SIGNS: Temperature 36.6, pulse 66, respirations 16, blood pressure 171/68. GENERAL: Alert, in no acute distress. HEENT: Normocephalic, atraumatic. Pupils equal, round, reactive to light. NECK: Supple, without lymphadenopathy. Trachea midline. HEART: Regular rate and rhythm. LUNGS: Clear to auscultation bilaterally. ABDOMEN: Soft, nondistended. She does have diffuse tenderness to palpation that is not localizable. She does have an ileostomy that is pink, patent and functional and has normal bowel sounds. GENITOURINARY: Normal external female genitalia. EXTREMITIES: No clubbing, cyanosis or edema. NEUROLOGIC: Cranial nerves 2-12 are grossly intact. PSYCHIATRIC: Normal mood and affect. SKIN AND INTEGUMENT: No abnormal lesions or moles. LABORATORY AND X-RAY DATA: CBC shows white blood cell count 6.0 thousand, hemoglobin 12.4, platelets 148,000. Creatinine is 12.4 consistent with renal disease. Albumin is 3.2. Liver function enzymes are normal. Lactic acid normal at 0.5. CT scan of the abdomen and pelvis shows unusual enhancement pattern in two regions of the liver that are suspected to be a perfusion artifact. In addition, there might be some right colon wall thickening. The CT scan appears to show that the patient's ostomy is actually a left-sided descending colostomy. ASSESSMENT AND PLAN: A 62-year-old female with renal disease and blood per ostomy, who presents with abdominal pain on the right side and possible thickening of the right colon. At this time, Dr. Phillips is prepping the patient for colonoscopy tomorrow, which I agree completely with. Imperative that she does not lose too much blood volume during dialysis, as I could exacerbate any ischemic colitis changes. In addition, the patient is being [facility] [address] [place] [address] CONSULTATION Name: ARIN ANDRADE Room #: 356-P ADM IN M.R.#: [id number] Admission: 10/30/17 Attend Phys: Lukas Aponte MD Discharge: Date of : 57 Report #: [id number] initiated on IV antibiotic therapy, which I recommend continuation of. I sincerely appreciate this consult. I will follow closely and leave any further recommendations post-colonoscopy in the patient's chart as appropriate. <ELECTRONICALLY SIGNED> By: James Ace MD, FACS 10/31/17 1041 [id number] [id number] James Ace MD, FACS /nt
[2017-10-30 08:19] VITALS: BP 210/104
[2017-10-30 09:29] LABS: ABSOLUTE NEUTROPHILS 3.9 thou/uL (1.4-8.2); EOSINOPHILS 2.5 % (0.0-3.0); HEMATOCRIT 37.8 % (37.0-47.0); HEMOGLOBIN 12.4 gm/dL (12.0-15.0); LYMPHOCYTES 20.7 % (24.0-44.0); MCH 29.3 pg (26.0-34.0); MCHC 32.8 g/dL (28.0-37.0); MCV 89.5 fL (80.0-100.0); MONOCYTES 10.8 % (1.0-8.0); PLATELET COUNT 148 thou/uL (150-400); RBC 4.23 mil/uL (4.20-5.00); RDW 19.9 % (10.5-14.5)
[2017-10-30 10:11] LABS: CALCIUM 9.3 mg/dL (8.5-10.1); CREATININE 12.4 mg/dL (0.6-1.0); POTASSIUM 3.9 mmol/L (3.5-5.1)
[2017-10-30 10:17] LABS: ALBUMIN 3.2 g/dL (3.4-5.0); DIRECT BILIRUBIN 0.1 mg/dL (<0.1-0.3); TOTAL BILIRUBIN 0.4 mg/dL (<0.1-1.0); TOTAL PROTEIN 6.7 g/dL (6.4-8.2)
[2017-10-30 12:00] VITALS: BP 196/94
[2017-10-30 12:09] VITALS: BP 195/104
[2017-10-30 15:38] VITALS: BP 171/68
[2017-10-30 23:04] LABS: HEMATOCRIT 40.3 % (37.0-47.0); HEMOGLOBIN 13.4 gm/dL (12.0-15.0); MCH 29.8 pg (26.0-34.0); MCHC 33.3 g/dL (28.0-37.0); MCV 89.5 fL (80.0-100.0); PLATELET COUNT 124 thou/uL (150-400); RDW 19.7 % (10.5-14.5)
[2017-10-30 23:19] LABS: ANION GAP 9 mmol/L (7-16); BUN 12 mg/dL (7-18); CALCIUM 9.4 mg/dL (8.5-10.1); CHLORIDE 99 mmol/L (98-107); CO2 28 mmol/L (21-32); GLUCOSE 77 mg/dL (74-106); POTASSIUM 3.4 mmol/L (3.5-5.1); SODIUM 136 mmol/L (136-145); TROPONIN-I < 0.04 ng/mL (<0.06)
[2017-10-30 23:33] LABS: CREATININE 4.4 mg/dL (0.6-1.0)
[2017-10-30 23:34] VITALS: BP 189/108
[2017-10-31 00:27] LABS: ABSOLUTE NEUTROPHILS 3.1 thou/uL (1.4-8.2); ANISOCYTOSIS 2+; ATYPICAL LYMPHS 1 %; POLYCHROMASIA 1+
[2017-10-31 04:09] LABS: HEP B SURFACE Ab(ANTI-HBS Reactive (()); HEPATITIS B SURFACE AG Negative (Negative)
[2017-10-31 04:21] VITALS: BP 168/92
[2017-10-31 06:08] LABS: HEMATOCRIT 37.5 % (37.0-47.0); HEMOGLOBIN 12.3 gm/dL (12.0-15.0); MCH 29.7 pg (26.0-34.0); MCHC 32.9 g/dL (28.0-37.0); MCV 90.3 fL (80.0-100.0); PLATELET COUNT 122 thou/uL (150-400); RBC 4.15 mil/uL (4.20-5.00); RDW 19.7 % (10.5-14.5); WBC 4.7 thou/uL (4.0-11.0)
[2017-10-31 06:23] LABS: CALCIUM 9.5 mg/dL (8.5-10.1); MAGNESIUM 1.8 mg/dL (1.8-2.4); POTASSIUM 4.3 mmol/L (3.5-5.1)
[2017-10-31 06:26] LABS: CREATININE 6.1 mg/dL (0.6-1.0)
[2017-10-31 07:04] LABS: ABSOLUTE NEUTROPHILS 2.3 thou/uL (1.4-8.2); ATYPICAL LYMPHS 4 %
[2017-10-31 07:05] LABS: ANISOCYTOSIS 2+; LARGE PLATELETS OCCASIONAL; POLYCHROMASIA 1+
[2017-10-31 08:45] VITALS: BP 181/90
[2017-10-31 13:00] VITALS: BP 163/85
[2017-10-31 16:45] VITALS: BP 179/87
[2017-10-31 19:50] VITALS: BP 160/85
[2017-11-01 00:07] VITALS: BP 176/94
[2017-11-01 04:20] VITALS: BP 167/75
[2017-11-01 06:12] LABS: HEMATOCRIT 36.4 % (37.0-47.0); HEMOGLOBIN 12.1 gm/dL (12.0-15.0); MCHC 33.3 g/dL (28.0-37.0); RBC 4.04 mil/uL (4.20-5.00); RDW 19.4 % (10.5-14.5); WBC 4.5 thou/uL (4.0-11.0)
[2017-11-01 06:25] LABS: CALCIUM 9.1 mg/dL (8.5-10.1); POTASSIUM 4.3 mmol/L (3.5-5.1)
[2017-11-01 06:28] LABS: CREATININE 8.5 mg/dL (0.6-1.0)
[2017-11-01 09:43] VITALS: BP 180/90
[2017-11-01 12:23] VITALS: BP 177/92
[2017-11-01 15:35] VITALS: BP 177/84
[2017-11-01 19:15] VITALS: BP 186/91
[2017-11-02 02:59] VITALS: BP 150/80
[2017-11-02 08:13] VITALS: BP 167/83
[2017-11-02 09:07] LABS: HEMATOCRIT 34.7 % (37.0-47.0); HEMOGLOBIN 11.4 gm/dL (12.0-15.0); MCH 29.6 pg (26.0-34.0); MCV 89.8 fL (80.0-100.0); RBC 3.86 mil/uL (4.20-5.00); RDW 19.6 % (10.5-14.5); WBC 4.6 thou/uL (4.0-11.0)
[2017-11-02 09:22] LABS: ALBUMIN 2.9 g/dL (3.4-5.0); CALCIUM 8.7 mg/dL (8.5-10.1); PHOSPHORUS 6.8 mg/dL (2.5-4.9); POTASSIUM 4.6 mmol/L (3.5-5.1)
[2017-11-02 09:25] LABS: CREATININE 10.3 mg/dL (0.6-1.0)
[2017-11-02 13:21] VITALS: BP 162/85
[2017-11-02 17:58] VITALS: BP 152/73
[2017-11-03 04:00] VITALS: BP 148/65
[2017-11-03 19:30] VITALS: BP 137/65
[2017-11-04 03:40] VITALS: BP 158/70
[2017-11-04 07:05] VITALS: BP 154/77
[2017-11-04 10:08] LABS: HEMATOCRIT 35.5 % (37.0-47.0); HEMOGLOBIN 11.8 gm/dL (12.0-15.0); MCH 29.6 pg (26.0-34.0); MCHC 33.3 g/dL (28.0-37.0); MCV 88.7 fL (80.0-100.0); RDW 18.5 % (10.5-14.5); WBC 4.7 thou/uL (4.0-11.0)
[2017-11-04 10:20] LABS: CALCIUM 8.5 mg/dL (8.5-10.1); MAGNESIUM 1.7 mg/dL (1.8-2.4); POTASSIUM 4.6 mmol/L (3.5-5.1)
[2017-11-04 11:02] VITALS: BP 148/71
[2017-11-04 15:26] VITALS: BP 145/73
[2017-11-04] MEDS ORDERED: NORVASC10 MG PO (15:29)
[2017-11-04] MEDS ORDERED: DICYCLOMINE HCL20 MG PO (15:29)
== END 2017-11-04 17:45 | disposition home or self-care (01) | DRG 391 ==
LOC: ER 08:18 → 3W 11:03 → EROBS 11:03 → 3W 13:48
PROVIDERS: Emergency Medicine; Hospitalist; Internal Medicine; Internal Medicine Nephrology; Nurse Practitioner; Nurse Practitioner Family
DX: K52.9 Noninfective gastroenteritis and colitis, unspecified (principal); N18.6 End stage renal disease; I12.0 Hypertensive chronic kidney disease with stage 5 chronic kidney disease or end stage renal disease; I16.1 Hypertensive emergency; G40.909 Epilepsy, unspecified, not intractable, without status epilepticus; M32.9 Systemic lupus erythematosus, unspecified; D12.5 Benign neoplasm of sigmoid colon; D12.3 Benign neoplasm of transverse colon; D69.6 Thrombocytopenia, unspecified; K57.30 Diverticulosis of large intestine without perforation or abscess without bleeding; Z96.643 Presence of artificial hip joint, bilateral; Z87.891 Personal history of nicotine dependence; Z93.3 Colostomy status; Z98.42 Cataract extraction status, left eye; Z98.41 Cataract extraction status, right eye; Z90.49 Acquired absence of other specified parts of digestive tract; Z91.15 Patient's noncompliance with renal dialysis; Z79.01 Long term (current) use of anticoagulants; Z79.899 Other long term (current) drug therapy; Z88.1 Allergy status to other antibiotic agents; Z88.8 Allergy status to other drugs, medicaments and biological substances; Z99.2 Dependence on renal dialysis; Z82.49 Family history of ischemic heart disease and other diseases of the circulatory system
CPT/HCPCS: 10779; 10879; 32100; 62110; 62900; 70005

== ENCOUNTER 2018-02-17 14:32 | Emergency (ER) | payer OTHER ==
[~2018-02-17] VITALS: Ht 160 cm; Wt 56.2 kg
[~2018-02-17 14:32] MED LIST changes: +DICYCLOMINE HCL20 MG PO; +NORVASC10 MG PO
[2018-02-17] MEDS ORDERED: PEPCID20 MG PO (14:49)
[2018-02-17] MEDS ORDERED: ASPIR 8181 MG PO (14:49)
[2018-02-17] MEDS ORDERED: CLONIDINE0.1 PO (14:51)
[2018-02-17] MEDS ORDERED: PHOSLO667 MG PO (14:51)
[2018-02-17] MEDS ORDERED: MELATONIN3 MG PO (14:52)
[2018-02-17 15:12] LABS: HEMATOCRIT 24.5 % (37.0-47.0); HEMOGLOBIN 8.3 gm/dL (12.0-15.0); MCH 32.9 pg (26.0-34.0); MCV 96.7 fL (80.0-100.0); PLATELET COUNT 143 thou/uL (150-400); RBC 2.53 mil/uL (4.20-5.00); RDW 20.1 % (10.5-14.5); WBC 5.6 thou/uL (4.0-11.0)
[2018-02-17 15:19] LABS: CALCIUM 8.5 mg/dL (8.5-10.1); CREATININE 7.9 mg/dL (0.6-1.0); POTASSIUM 4.2 mmol/L (3.5-5.1)
[2018-02-17 15:23] LABS: ALBUMIN 3.1 g/dL (3.4-5.0); DIRECT BILIRUBIN 0.1 mg/dL (<0.1-0.3); TOTAL BILIRUBIN 0.4 mg/dL (<0.1-1.0); TOTAL PROTEIN 6.5 g/dL (6.4-8.2)
[2018-02-17 15:38] LABS: ABSOLUTE NEUTROPHILS 3.5 thou/uL (1.4-8.2); ANISOCYTOSIS 1+; PLATELET ESTIMATE NORMAL
== END 2018-02-17 17:52 | disposition home or self-care (01) ==
LOC: ER 14:32
PROVIDERS: Emergency Medicine
DX: K92.2 Gastrointestinal hemorrhage, unspecified (principal); D64.9 Anemia, unspecified; I10 Essential (primary) hypertension; M32.9 Systemic lupus erythematosus, unspecified; Z90.49 Acquired absence of other specified parts of digestive tract; Z96.643 Presence of artificial hip joint, bilateral; Z87.891 Personal history of nicotine dependence; Z88.8 Allergy status to other drugs, medicaments and biological substances

== ENCOUNTER 2018-03-24 18:42 | Emergency (ER) | payer OTHER ==
[~2018-03-24] VITALS: Ht 160 cm; Wt 60.8 kg
[~2018-03-24 18:42] MED LIST changes: +MELATONIN3 MG PO; +PEPCID20 MG PO; +PHOSLO667 MG PO
== END 2018-03-24 21:40 | disposition home or self-care (01) ==
LOC: ER 18:42
DX: M25.551 Pain in right hip (principal); I10 Essential (primary) hypertension; M32.9 Systemic lupus erythematosus, unspecified; Z99.2 Dependence on renal dialysis; Z90.49 Acquired absence of other specified parts of digestive tract; Z87.891 Personal history of nicotine dependence; Z88.8 Allergy status to other drugs, medicaments and biological substances; W01.0XXA Fall on same level from slipping, tripping and stumbling without subsequent striking against object, initial encounter; Y93.89 Activity, other specified; Y92.89 Other specified places as the place of occurrence of the external cause; Y99.8 Other external cause status

== ENCOUNTER 2018-06-28 12:04 | Inpatient (IN) | payer OTHER ==
[~2018-06-28] VITALS: Ht 160 cm; Wt 62.9 kg
--- NOTE | ~2018-06-28 | HC ---
[facility] [place] [address] CONSULTATION Name: ARIN ANDRADE Room #: 356-P ADM IN .R.#: [id number] Admission: 06/28/18 Attend Phys: Lukas Aponte MD Discharge: Date of : 57 Report #: [id number] THIS REPORT FOR: //name// CC: Lukas Aponte Gilbert Akkulugari DATE OF SERVICE: 06/29/2018 REASON FOR CONSULTATION: End-stage renal disease. ATTENDING PHYSICIAN: Dr. Aponte. HISTORY OF PRESENT ILLNESS: The patient with end-stage renal disease, resides at [facility]. She has chronic intermittent abdominal pain with multiple admissions. She states she started having worsening abdominal pain 1 week ago. There has been blood on and off in her colostomy for some time. 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 She has had this greater than 1 year. PAST MEDICAL HISTORY: Multiple similar episodes. She did have a similar episode in October of this year, presented to this hospital, had colonoscopy, which did not show any colitis. She has had systemic lupus. She was on dialysis, then had a kidney transplant for 13 years, but back on dialysis for about a year or so. She has had some mild diverticulosis in the past as well. She has also had hypertension, some history of thrombocytopenia, failed kidney transplant as mentioned, history of paroxysmal atrial fibrillation, bilateral hip prostheses, history of seizure disorder, previous appendectomy and cholecystectomy, possible DVT. FAMILY HISTORY: Positive for lupus, hypertension and end-stage renal disease. SOCIAL HISTORY: She smokes a half pack of cigarettes a day and stays in a [facility]p. REVIEW OF SYSTEMS: GENERAL: She has been unwell. EYES: She says her vision is okay. ENT: Hearing okay. No mouth sores. ENDOCRINE: No diabetes or thyroid disease. RESPIRATORY: No shortness of breath, pleuritic pain, cough, or hemoptysis. CARDIAC: No chest pain or angina. GASTROINTESTINAL: She has had the abdominal pain and nausea. No vomiting. GENITOURINARY: Makes very little with any urine. MUSCULOSKELETAL: Denies any arthritis. PHYSICAL EXAMINATION: [facility] [address] [place] [address] CONSULTATION Name: ARIN ANDRADE Room #: 356-P [facility] IN [facility]#: [id number] Admission: 06/28/18 Attend Phys: Lukas Aponte MD Discharge: Date of : 57 Report #: [id number] GENERAL: This is a somewhat chronically ill appearing patient, looking older than her stated age. SKIN: Unremarkable. SKELETAL: Shows her to be well developed, well nourished. No arthritis. HEENT: Extraocular movements are full. Vision is intact. Hearing is intact. Mucous membranes are slightly dry. NECK: Supple. CHEST: Clear to auscultation. There is a left chest dialysis catheter in place. HEART: Regular. ABDOMEN: Rather tender, more in the left than the right, but she has got good bowel sounds. It is actually soft without peripheral edema. Decreased peripheral pulses noted. LABORATORY DATA: Hemoglobin 10.6, white count 7.0, platelets 176. Sodium 135, potassium 5, chloride 100, bicarbonate 23, BUN 40, creatinine 2.2. ASSESSMENT: 1. Abdominal pain. She has recurrent abdominal pain. She has got a colostomy. There has been some blood in it. Colitis is a possibility and the past workups have been nonrevealing. 2. End-stage renal disease, in need of routine dialysis that will be arranged and ordered. 3. Systemic lupus with failed renal transplant. 4. History of hypertension. 5. Previous small-bowel obstruction with colostomy that seems permanent. 6. History of seizure disorder. <ELECTRONICALLY SIGNED> By: Keenan Vang MD 07/01/18 1109 0951 0148 Keenan Vang MD /nt
[2018-06-28 12:05] VITALS: BP 176/97
[2018-06-28 12:31] LABS: ABSOLUTE NEUTROPHILS 5.2 thou/uL (1.4-8.2); EOSINOPHILS 1.4 % (0.0-3.0); HEMATOCRIT 31.5 % (37.0-47.0); HEMOGLOBIN 10.6 gm/dL (12.0-15.0); LYMPHOCYTES 13.8 % (24.0-44.0); MCH 30.2 pg (26.0-34.0); MCHC 33.7 g/dL (28.0-37.0); MCV 89.5 fL (80.0-100.0); MONOCYTES 9.1 % (1.0-8.0); PLATELET COUNT 176 thou/uL (150-400); POLYS 74.7 % (36.0-66.0); RBC 3.51 mil/uL (4.20-5.00); RDW 20.1 % (10.5-14.5)
[2018-06-28 12:46] LABS: CALCIUM 8.9 mg/dL (8.5-10.1); CREATININE 10.2 mg/dL (0.6-1.0)
[2018-06-28 12:52] LABS: ALBUMIN 3.3 g/dL (3.4-5.0); TOTAL BILIRUBIN 0.5 mg/dL (<0.1-1.0); TOTAL PROTEIN 7.4 g/dL (6.4-8.2)
[2018-06-28 13:25] LABS: ANISOCYTOSIS 1+; PLATELET ESTIMATE NORMAL
[2018-06-28] MEDS ORDERED: PRILOSEC 20 MG20 MG PO (14:23)
[2018-06-28] MEDS ORDERED: NORCO 5-325 TA1 EACH PO (14:24)
[2018-06-28] MEDS ORDERED: ELIQUIS2.5 MG PO (14:25)
[2018-06-28 15:28] VITALS: BP 193/98
[2018-06-28 16:59] VITALS: BP 188/83
[2018-06-28 17:34] VITALS: BP 190/94
[2018-06-28 20:05] VITALS: BP 196/102
[2018-06-28 23:45] VITALS: BP 172/82
[2018-06-29 05:16] VITALS: BP 184/95
[2018-06-29 08:07] VITALS: BP 183/77
[2018-06-29 11:21] LABS: ABSOLUTE NEUTROPHILS 4.2 thou/uL (1.4-8.2); BASOPHILS 0.7 % (0.0-2.0); EOSINOPHILS 2.4 % (0.0-3.0); HEMOGLOBIN 9.9 gm/dL (12.0-15.0); LYMPHOCYTES 13.1 % (24.0-44.0); MCH 30.6 pg (26.0-34.0); MONOCYTES 10.7 % (1.0-8.0); PLATELET COUNT 137 thou/uL (150-400); POLYS 73.1 % (36.0-66.0); RBC 3.23 mil/uL (4.20-5.00); RDW 20.1 % (10.5-14.5); WBC 5.7 thou/uL (4.0-11.0)
[2018-06-29 11:37] LABS: ALBUMIN 2.7 g/dL (3.4-5.0); CALCIUM 8.4 mg/dL (8.5-10.1); CREATININE 11.4 mg/dL (0.6-1.0); MAGNESIUM 1.8 mg/dL (1.8-2.4); POTASSIUM 4.5 mmol/L (3.5-5.1); TOTAL BILIRUBIN 0.5 mg/dL (<0.1-1.0); TOTAL PROTEIN 6.1 g/dL (6.4-8.2)
[2018-06-29 12:13] LABS: ANISOCYTOSIS 1+
[2018-06-29 17:13] VITALS: BP 173/79
[2018-06-29 20:00] VITALS: BP 184/74
[2018-06-30 00:10] VITALS: BP 185/76
[2018-06-30 04:40] VITALS: BP 178/87
[2018-06-30 07:49] VITALS: BP 169/77
[2018-06-30 14:07] VITALS: BP 169/73
[2018-06-30 20:20] VITALS: BP 164/86
[2018-07-01 04:35] VITALS: BP 157/74
[2018-07-01 08:00] VITALS: BP 164/55
[2018-07-01 08:59] LABS: HEMATOCRIT 29.1 % (37.0-47.0); HEMOGLOBIN 9.7 gm/dL (12.0-15.0); MCH 30.1 pg (26.0-34.0); MCHC 33.5 g/dL (28.0-37.0); RBC 3.23 mil/uL (4.20-5.00); RDW 19.6 % (10.5-14.5); WBC 5.3 thou/uL (4.0-11.0)
[2018-07-01 09:17] LABS: ALBUMIN 2.8 g/dL (3.4-5.0); CALCIUM 8.6 mg/dL (8.5-10.1); CREATININE 9.4 mg/dL (0.6-1.0); POTASSIUM 4.3 mmol/L (3.5-5.1)
[2018-07-01 12:07] VITALS: BP 177/67
[2018-07-01 17:18] VITALS: BP 141/73
[2018-07-01 20:15] VITALS: BP 148/69
[2018-07-02 05:48] VITALS: BP 175/81
[2018-07-02 09:49] VITALS: BP 180/79
[2018-07-02] MEDS ORDERED: FIRVANQ50 MG/1 ML PO (13:10)
[2018-07-02] MEDS ORDERED: NEPHROCAPS SOFT1 CAP PO (13:11)
[2018-07-02 14:17] VITALS: BP 180/79
[2018-07-02 16:30] VITALS: BP 140/72
== END 2018-07-02 16:42 | disposition home health service (06) | DRG 393 ==
LOC: ER 12:04 → 3W 14:48 → EROBS 14:48 → 3W 17:00
PROVIDERS: Emergency Medicine; Internal Medicine Nephrology; Nurse Practitioner
PROC: 5A1D70Z Performance of Urinary Filtration, Intermittent, Less than 6 Hours Per Day (ICD-10-PCS; principal; 2018-06-29)
PROC: 5A1D70Z Performance of Urinary Filtration, Intermittent, Less than 6 Hours Per Day (ICD-10-PCS; 2018-07-01)
DX: K94.01 Colostomy hemorrhage (principal); N18.6 End stage renal disease; A04.72 Enterocolitis due to Clostridium difficile, not specified as recurrent; K92.2 Gastrointestinal hemorrhage, unspecified; A18.4 Tuberculosis of skin and subcutaneous tissue; Z94.0 Kidney transplant status; I12.0 Hypertensive chronic kidney disease with stage 5 chronic kidney disease or end stage renal disease; Z96.643 Presence of artificial hip joint, bilateral; I48.0 Paroxysmal atrial fibrillation; G40.909 Epilepsy, unspecified, not intractable, without status epilepticus; D69.6 Thrombocytopenia, unspecified; D64.9 Anemia, unspecified; Z90.49 Acquired absence of other specified parts of digestive tract; Z91.19 Patient's noncompliance with other medical treatment and regimen; Z98.42 Cataract extraction status, left eye; Z98.41 Cataract extraction status, right eye; Z88.8 Allergy status to other drugs, medicaments and biological substances; Z87.891 Personal history of nicotine dependence; Z82.49 Family history of ischemic heart disease and other diseases of the circulatory system; Z84.1 Family history of disorders of kidney and ureter; Z79.52 Long term (current) use of systemic steroids; Z86.010 Personal history of colon polyps; Z99.2 Dependence on renal dialysis
CPT/HCPCS: 10779; 32100

== ENCOUNTER 2018-07-10 10:15 | Emergency (ER) | payer OTHER ==
[~2018-07-10] VITALS: Ht 160 cm; Wt 55.3 kg
--- NOTE | ~2018-07-10 | EKG ---
[address] [place] [address] ELECTROCARDIOGRAM REPORT Name: ARIN ANDRADE [facility] [id number] Admission: 07/10/18 Attend Phys: Discharge: 07/10/18 Date of : 57 Report #: [id number] THIS REPORT FOR: //name// [facility] ED Test Date: 2018-07-10 Test Time: 10:51:56 Pat Name: ARIN ANDRADE Department: Room: Gender: F Straw Hat Plunger Operator: [facility] : 1955 Requested By: Yung Dumas Order Number: [id number] MD: Paras Morrissey Measurements Intervals [place] Rate: 69 P: 81 [place]: 195 QRS: 74 QRSD: 83 T: 52 QT: 424 QTc: 455 Interpretive Statements Sinus rhythm Normal tracing Compared to ECG 10/30/2017 22:46:16 No significant changes Electronically Signed On 07-11-2018 9:23:00 WIND TECHNICIAN by Paras Morrissey [email or web address] <ELECTRONICALLY SIGNED> By: Paras Morrissey MD, [facility] 07/11/18 0923 1051 1051 Paras Morrissey MD, FACC /EPI
[~2018-07-10 10:15] MED LIST changes: +FIRVANQ50 MG/1 ML PO; +NEPHROCAPS SOFT1 CAP PO; +PRILOSEC 20 MG20 MG PO
[2018-07-10 11:19] LABS: HEMATOCRIT 27.7 % (37.0-47.0); HEMOGLOBIN 9.5 gm/dL (12.0-15.0); MCH 30.1 pg (26.0-34.0); MCHC 34.1 g/dL (28.0-37.0); MCV 88.1 fL (80.0-100.0); PLATELET COUNT 167 thou/uL (150-400); RBC 3.14 mil/uL (4.20-5.00); RDW 20.2 % (10.5-14.5); WBC 6.2 thou/uL (4.0-11.0)
[2018-07-10 11:42] LABS: ALBUMIN 3.4 g/dL (3.4-5.0); CALCIUM 9.2 mg/dL (8.5-10.1); CREATININE 10.4 mg/dL (0.6-1.0); POTASSIUM 4.8 mmol/L (3.5-5.1); TOTAL BILIRUBIN 0.4 mg/dL (<0.1-1.0); TOTAL PROTEIN 6.9 g/dL (6.4-8.2)
[2018-07-10] MEDS ORDERED: TRAZODONE HCL50 MG PO (11:43)
[2018-07-10] MEDS ORDERED: VANCOCIN 250 M250 M1 PO (13:21)
[2018-07-10] MEDS ORDERED: NORCO 10-325 T1 EACH PO (13:21)
[2018-07-10 13:52] LABS: ABSOLUTE NEUTROPHILS 3.8 thou/uL (1.4-8.2)
[2018-07-10 13:53] LABS: ANISOCYTOSIS 2+
[2018-07-10 14:28] VITALS: BP 167/77
== END 2018-07-10 15:07 | disposition home or self-care (01) ==
LOC: ER 10:15
PROVIDERS: Physician Assistant
DX: A04.72 Enterocolitis due to Clostridium difficile, not specified as recurrent (principal); D64.9 Anemia, unspecified; I12.0 Hypertensive chronic kidney disease with stage 5 chronic kidney disease or end stage renal disease; N18.6 End stage renal disease; M32.9 Systemic lupus erythematosus, unspecified; Z87.891 Personal history of nicotine dependence; Z88.1 Allergy status to other antibiotic agents; Z88.8 Allergy status to other drugs, medicaments and biological substances; Z99.2 Dependence on renal dialysis

== ENCOUNTER 2018-07-17 14:09 | Emergency (ER) | payer OTHER ==
[~2018-07-17] VITALS: Ht 157.5 cm; Wt 59.9 kg
[~2018-07-17 14:09] MED LIST changes: +NORCO 10-325 T1 EACH PO; +TRAZODONE HCL50 MG PO; +VANCOCIN 250 M250 M1 PO
[2018-07-17 17:51] VITALS: BP 158/72
== END 2018-07-17 17:53 | disposition home or self-care (01) ==
LOC: ER 14:09
DX: M25.552 Pain in left hip (principal); I10 Essential (primary) hypertension; M32.9 Systemic lupus erythematosus, unspecified; Z99.2 Dependence on renal dialysis; Z87.891 Personal history of nicotine dependence; Z88.8 Allergy status to other drugs, medicaments and biological substances

== ENCOUNTER 2018-10-21 17:16 | Inpatient (IN) | payer OTHER ==
[~2018-10-21] VITALS: Ht 160 cm; Wt 59.0 kg
--- NOTE | ~2018-10-21 | HC ---
[facility] [place] [address] CONSULTATION Name: ARIN ANDRADE Room #: 461-P ADM IN M.R.#: [id number] Admission: 10/21/18 ������������������ Attend Phys: Bassam Mares Discharge: ������������������ Date of : 57 Report #: [id number] THIS REPORT FOR: //name// CC: Bassam Pereira DATE OF SERVICE: 10/22/2018 REASON FOR CONSULTATION: End-stage renal disease, on dialysis. HISTORY OF PRESENT ILLNESS: The patient is well known to our service multiple previous hospitalizations at this hospital for similar problems. She is having abdominal cramping and abdominal pain, poor appetite with nausea. No bloody stool and no isaura vomiting. She has been admitted as mentioned multiple times for similar complaints. She dialyzed yesterday. PAST MEDICAL HISTORY: Includes previous failed kidney transplant, now on dialysis for a couple of years, history of hypertension, atrial fibrillation, cholecystectomy. She has previous history of C. diff, history of systemic lupus, history of seizure disorder, previous appendectomy. She has had the colostomy now for about a year and a half after having abdominal surgery and colitis. FAMILY HISTORY: Positive for lupus, hypertension and end-stage renal disease. SOCIAL HISTORY: Ongoing cigarette smoking. Lives in extended care facility. REVIEW OF SYSTEMS: GENERAL: She has been feeling poorly. EYES: Vision is alright. ENT: Hearing okay. No mouth sores or ulcers. ENDOCRINE: No diabetes or thyroid disease. RESPIRATORY: No shortness of breath, pleuritic pain, cough or hemoptysis. CARDIAC: No chest pain or angina or swelling. GASTROINTESTINAL: Abdominal pain, nausea, increased liquid stool. GENITOURINARY: Very little urine. MUSCULOSKELETAL: No current arthritis. PHYSICAL EXAMINATION: GENERAL: Somewhat chronically ill appearing patient. EYES: Unremarkable. SKIN: Unremarkable. SKELETAL: Well developed, well nourished. No amputations. HEENT: Vision intact. Hearing intact. Mucous membranes slightly dry. NECK: Supple without carotid bruits or lymphadenopathy. CHEST: Clear to auscultation. Left chest dialysis catheter is in place. Exit [facility] [address] [place] [address] CONSULTATION Name: ARIN ANDRADE Avis Room #: 461-P [facility] IN ..#: [id number] Admission: 10/21/18 ������������������ Attend Phys: Bassam Mares Discharge: ������������������ Date of : 57 Report #: [id number] site looks good. HEART: Regular. ABDOMEN: Tender and sore more on the right than the left. Bowel sounds are present and she has little bit of guarding. EXTREMITIES: Show no edema. NEUROLOGIC: Grossly intact. LABORATORY DATA: Hemoglobin 7.6, platelets 87. Sodium 138, potassium 3.9, chloride 101, bicarbonate 29, creatinine 5.7, BUN 18. ASSESSMENT AND PLAN: 1. End-stage renal disease, due for dialysis tomorrow. Routine dialysis will be performed. Orders have been entered. 2. Abdominal pain thought to be possibly colitis, possibly Clostridium difficile. 3. History of failed renal transplant. 4. History of systemic lupus. 5. History of seizure disorder. 6. History of small-bowel obstruction with colostomy. 7. History of hypertension. ��������������������������������������������� ���������������������������������������� By: ��������������������������������������������� [phone] Keenan Vang MD /nt
[2018-10-21 17:18] VITALS: BP 161/47
[2018-10-21 18:08] LABS: BASOPHILS 0.4 % (0.0-2.0); EOSINOPHILS 0.6 % (0.0-3.0); HEMATOCRIT 24.3 % (37.0-47.0); HEMOGLOBIN 8.5 gm/dL (12.0-15.0); LYMPHOCYTES 12.8 % (24.0-44.0); MCH 30.9 pg (26.0-34.0); MCV 88.2 fL (80.0-100.0); MONOCYTES 8.7 % (1.0-8.0); PLATELET COUNT 100 thou/uL (150-400); POLYS 77.5 % (36.0-66.0); RBC 2.76 mil/uL (4.20-5.00); RDW 20.7 % (10.5-14.5); WBC 5.2 thou/uL (4.0-11.0)
[2018-10-21 18:21] LABS: CALCIUM 9.4 mg/dL (8.5-10.1); CREATININE 4.8 mg/dL (0.6-1.0); POTASSIUM 3.7 mmol/L (3.5-5.1)
[2018-10-21 18:22] LABS: APTT 25.7 Seconds (24.5-32.8); INR 1.1; PROTIME 11.1 Seconds (9.3-11.4)
[2018-10-21 18:26] LABS: ALBUMIN 3.5 g/dL (3.4-5.0); TOTAL BILIRUBIN 0.7 mg/dL (<0.1-1.0); TOTAL PROTEIN 7.1 g/dL (6.4-8.2)
[2018-10-21] MEDS ORDERED: CALCIUM ACETAT667 MG PO (18:58)
[2018-10-21] MEDS ORDERED: MELATONIN3 MG PO (19:01)
[2018-10-21] MEDS ORDERED: RESTORIL15 M1 PO (19:01)
[2018-10-21] MEDS ORDERED: RENAL CAPS SOFTG1 MG PO (19:02)
[2018-10-21 21:07] VITALS: BP 165/72
[2018-10-21 21:10] VITALS: BP 165/72
[2018-10-21 21:36] VITALS: BP 165/70
--- NOTE | 2018-10-22 03:59 | NUR ---
PT ORIENTATED TO ROOM AND CALL LIGHT PT GIVEN MORPHINE FOR PAIN PT DID NOT TRY TO GET UP UNASSISTED NO ISSUES OVERNIGHT.
[2018-10-22 05:00] VITALS: BP 156/68
[2018-10-22 05:35] LABS: HEMATOCRIT 22.1 % (37.0-47.0); HEMOGLOBIN 7.6 gm/dL (12.0-15.0); MCH 30.4 pg (26.0-34.0); MCHC 34.3 g/dL (28.0-37.0); MCV 88.7 fL (80.0-100.0); RBC 2.48 mil/uL (4.20-5.00); RDW 20.6 % (10.5-14.5); WBC 4.2 thou/uL (4.0-11.0)
[2018-10-22 05:57] LABS: CREATININE 5.7 mg/dL (0.6-1.0); POTASSIUM 3.9 mmol/L (3.5-5.1)
--- NOTE | 2018-10-22 07:49 | EKG ---
[address] [place] [address] ELECTROCARDIOGRAM REPORT Name: ARIN ANDRADE Room #: 461-P ADM IN M.R.#: [id number] ������������������ Admission: 10/21/18 ������������������ Attend Phys: Bassam Mares Discharge: ������������������ Date of : 57 Report #: [id number] ����������������������������������������������������������������� [id number] THIS REPORT FOR: //name// [facility] ED Test Date: 2018-10-21 Test Time: 17:33:32 Pat Name: ARIN ANDRADE Department: Room: 461 Gender: F Software Test Specialist: NEREYDA : 1955 Requested By: Concepción Ramirez Order Number: [id number] MD: Paras Morrissey Measurements Intervals [place] Rate: 73 P: 94 [place]: 224 QRS: 65 QRSD: 87 T: 39 QT: 440 QTc: 485 Interpretive Statements Sinus rhythm Prolonged [place] interval Compared to ECG 07/10/2018 10:51:56 First degree AV block now present Electronically Signed On 10-22-2018 7:49:17 PATENT LEGAL ASSISTANT by Paras Morrissey [email or web address] ��������������������������������������������� <ELECTRONICALLY SIGNED> ���������������������������������������� By: Paras Morrissey MD, [facility] ��������������������������������������������� 10/22/18 0749 [id number] Paras Morrissey MD, [facility] /EPI
[2018-10-22 08:00] VITALS: BP 158/67
[2018-10-22 15:00] VITALS: BP 167/72
--- NOTE | 2018-10-22 16:48 | NUR ---
PT ADMITTED RELATED TO SYNCOPE WEAKNESS FALL. CM REVIEWED CHART AND SPOKE WITH CARE TEAM. CM ATTEMPTED TO VISIT WITH PT THREE TIMES BUT PT WOULD NOT ROUSE. BASED ON CHART REVIEW PT RESIDES AT [facility] IN THEIR R[facility]. PT HAD BEEN INDEPENDENT WITH GAIT AND ADLS VP RESPIRATORY. PT GOES TO [facility] IN [place] 11:30 CHAIR TIME T, R, S. CM TO FOLLOW INDICATED WITH DC PLANNING. [facility]: P: [facility]: P: , F:
--- NOTE | 2018-10-22 19:51 | NUR ---
PATIENT REFUSED AM MEDS. MAIN COMPLAINT ABD PAIN. MEDICATED WITH MS 4 MG IV PUSH X 3 AND PATIENT WENT TO SLEEP. PATIENT BECAME VERY AGGRAVATED WHEN WAKENED TO TAKE MEDICATIONS. SHE DID TAKE HER VANCOMYCIN AND HER COREG AT 1800. PATIENT CONVERSES WITH VISITORS BUT NOT WITH THIS RN. PATIENT TO HAVE DIALYSIS IN AM. NO STOOL IN OSTOMY. BO, WOUND CARE NURSE CHANGED OSTOMY BAG AND APPLIANCE TODAY. FALL PRECAUTIONS REMAIN IN PLACE.
[2018-10-22 20:18] VITALS: BP 155/62
[2018-10-23 00:19] VITALS: BP 158/65
[2018-10-23 04:26] VITALS: BP 154/60
[2018-10-23 07:23] LABS: HEMATOCRIT 26.1 % (37.0-47.0); HEMOGLOBIN 8.8 gm/dL (12.0-15.0); MCHC 33.6 g/dL (28.0-37.0); MCV 89.2 fL (80.0-100.0); RBC 2.93 mil/uL (4.20-5.00); RDW 21.1 % (10.5-14.5); WBC 7.3 thou/uL (4.0-11.0)
[2018-10-23 07:45] VITALS: BP 168/69
--- NOTE | 2018-10-23 07:53 | NUR ---
PROGRESS PT DENIES PAIN, SLEPT ALL NOC, NO STOOL SAMPLE OBTAINED [place] PINK MOIST DARKER ON EDGES , ON ROOM AIR SR ON TELE. CONTINUE TO MONITOR.
--- NOTE | 2018-10-23 16:03 | NUR ---
PT STABLE THROUGHOUT SHIFT. PT SLEPT THROUGHOUT DAY, EASILY AROUSABLE BUT ONLY GOT UP TO TAKE MEDS. DIALYSIS LATER THIS EVENING. WILL CONTINUE TO MONITOR.
[2018-10-23 17:00] VITALS: BP 149/65
[2018-10-23 20:13] VITALS: BP 132/60
[2018-10-24 04:00] VITALS: BP 118/57
--- NOTE | 2018-10-24 08:54 | NUR ---
PROGRESS PT A/O X4 HAD DIALYSIS THIS EVENING 0.5 LITER REMOVED PT SENIED NASEA MURRY OR ANY OTHER DIFFICULTY. DID REQUEST A BENEDRYL FOR ITCHING GIVEN AND SPONGE BATH PROVIDED AND LOTION APPLIED WITH EFFECT. IV TO [facility], DIALYSIS ACCESS ONE PORT DAMAGED PER DIALYSIS NURSE NEEDS TO BE REPAIRED BY IR.
[2018-10-24 09:10] VITALS: BP 170/70
[2018-10-24 14:56] VITALS: BP 141/57
--- NOTE | 2018-10-24 18:19 | NUR ---
PT ALERT AND ORIENTED TIMES FOUR, WITH SOMEWHAT BLUNTED AFFECT. VSS, 98%RA, SR ON TELE, C/O PAIN PRN PAIN MEDICATION GIVEN WITH GOOD RELIEF. PT TOLERATES MEDS AND MEALS. PT SLOWLY PROGRESSING TOWRADS POC GOALS.
[2018-10-24 20:08] VITALS: BP 154/59
[2018-10-25 04:32] VITALS: BP 136/54
--- NOTE | 2018-10-25 06:48 | NUR ---
Assumed care at 1845. Pt resting in bed. She has no IV called IV team but they failed to put one in. She is still SR on Tele. No identified needs at the moment. Will continue to monitor.
[2018-10-25 08:00] VITALS: BP 174/75
[2018-10-25 12:50] VITALS: BP 174/75
--- NOTE | 2018-10-25 14:29 | NUR ---
CARE TEAM INDICATED THAT PT IS MEDICALLY STABLE TO RETURN TO [facility] R[facility] THIS DAY. CM MET WITH PT AT BEDSIDE THIS DAY. PT IS AGREEABLE WITH DC BUT INDICATED THAT SHE DOESN'T WANT HOME HEALTH SERVICES. CM INDICATED THEY WOULD JUST ASSESS UPON PT'S RETURN HOME AND THEN DISCHARGE HER IF SHE WAS DOING FINE. PT INDICATED SHE DIDN'T FEEL SHE NEEDED THEM. SHE STATED THAT SHE WOULD GO THROUGH PCP [facility] IF SHE FELT SHE NEEDED THEM AFTER [facility]. CM NOTIFIED PHYSICIAN AND SHE INDICATED PT WAS STILL SFE TO [facility] WITHOUT THEM. CM ARRANGED [facility] FOR PT BETWEEN 1425 AND 1725 TRIP NUMBER [id number]. CM NOTIFIED [facility] THAT PT DECLINED HOME HEALTH. FLOW SHEETS TO BE FAXED TO [facility]. NO OTHER CM INTERVENTION INDICATED AT THIS TIME. CASE CLOSED.
[2018-10-25 15:00] VITALS: BP 142/61
--- NOTE | 2018-10-25 17:03 | NUR ---
Assumed pt care this am, colostomy bag patent draining light yellow soft stool with air in the bag. Received pt without an IV. no complaints of pain were verbalized. Diet is well tolerated. DC orders given, intructions given to the pt. Awaiting for transport.
[2018-10-25 18:00] VITALS: BP 174/75
== END 2018-10-25 20:00 | disposition home health service (06) | DRG 391 ==
LOC: ER 17:16 → 4W 20:34 → EROBS 20:34 → 4W 21:22
PROVIDERS: Nurse Practitioner Family; Physician Assistant; ADMIT Hospitalist
PROC: 5A1D70Z Performance of Urinary Filtration, Intermittent, Less than 6 Hours Per Day (ICD-10-PCS; principal; 2018-10-23)
DX: K52.9 Noninfective gastroenteritis and colitis, unspecified (principal); N18.6 End stage renal disease; Z94.0 Kidney transplant status; I12.0 Hypertensive chronic kidney disease with stage 5 chronic kidney disease or end stage renal disease; D64.9 Anemia, unspecified; I48.91 Unspecified atrial fibrillation; E78.5 Hyperlipidemia, unspecified; M32.9 Systemic lupus erythematosus, unspecified; G40.909 Epilepsy, unspecified, not intractable, without status epilepticus; D63.8 Anemia in other chronic diseases classified elsewhere; Z96.643 Presence of artificial hip joint, bilateral; Z93.3 Colostomy status; Z91.19 Patient's noncompliance with other medical treatment and regimen; Z90.49 Acquired absence of other specified parts of digestive tract; Z98.42 Cataract extraction status, left eye; Z98.41 Cataract extraction status, right eye; Z87.891 Personal history of nicotine dependence; Z88.8 Allergy status to other drugs, medicaments and biological substances; Z82.49 Family history of ischemic heart disease and other diseases of the circulatory system; Z86.010 Personal history of colon polyps; Z79.899 Other long term (current) drug therapy; Z93.2 Ileostomy status; Z99.2 Dependence on renal dialysis
CPT/HCPCS: 10045; 32100

== ENCOUNTER 2018-10-29 13:34 | Emergency (ER) | payer OTHER ==
[~2018-10-29] VITALS: Ht 160 cm; Wt 59.9 kg
[~2018-10-29 13:34] MED LIST changes: +CALCIUM ACETAT667 MG PO; +RENAL CAPS SOFTG1 MG PO; +RESTORIL15 M1 PO
[2018-10-29 14:40] VITALS: BP 143/48
== END 2018-10-29 14:42 | disposition home or self-care (01) ==
LOC: ER 13:34
DX: T82.49XA Other complication of vascular dialysis catheter, initial encounter (principal); E78.5 Hyperlipidemia, unspecified; M32.9 Systemic lupus erythematosus, unspecified; I10 Essential (primary) hypertension; Z87.891 Personal history of nicotine dependence; Z88.1 Allergy status to other antibiotic agents; Z88.8 Allergy status to other drugs, medicaments and biological substances; Z86.2 Personal history of diseases of the blood and blood-forming organs and certain disorders involving the immune mechanism; Z99.2 Dependence on renal dialysis; Z90.49 Acquired absence of other specified parts of digestive tract; Y84.8 Other medical procedures as the cause of abnormal reaction of the patient, or of later complication, without mention of misadventure at the time of the procedure; Y92.89 Other specified places as the place of occurrence of the external cause

== ENCOUNTER 2018-11-02 08:39 | Emergency (ER) | payer OTHER ==
[~2018-11-02] VITALS: Ht 157.5 cm; Wt 59.9 kg
[2018-11-02 09:27] LABS: HEMATOCRIT 23.5 % (37.0-47.0); HEMOGLOBIN 7.8 gm/dL (12.0-15.0); MCH 29.6 pg (26.0-34.0); MCHC 33.3 g/dL (28.0-37.0); PLATELET COUNT 245 thou/uL (150-400); RBC 2.65 mil/uL (4.20-5.00); RDW 19.9 % (10.5-14.5); WBC 8.1 thou/uL (4.0-11.0)
[2018-11-02 09:28] LABS: CALCIUM 9.7 mg/dL (8.5-10.1); CREATININE 10.2 mg/dL (0.6-1.0); POTASSIUM 4.3 mmol/L (3.5-5.1)
[2018-11-02 09:34] LABS: TOTAL BILIRUBIN 0.5 mg/dL (<0.1-1.0); TOTAL PROTEIN 6.9 g/dL (6.4-8.2)
[2018-11-02 09:57] LABS: ABSOLUTE NEUTROPHILS 5.6 thou/uL (1.4-8.2)
[2018-11-02 09:58] LABS: ANISOCYTOSIS 2+; HYPOCHROMASIA 2+; PLATELET ESTIMATE NORMAL
[2018-11-02 11:21] VITALS: BP 155/63
== END 2018-11-02 11:22 | disposition home or self-care (01) ==
LOC: ER 08:39
PROVIDERS: Emergency Medicine
DX: M54.5 Low back pain (principal); I10 Essential (primary) hypertension; E78.5 Hyperlipidemia, unspecified; Z96.643 Presence of artificial hip joint, bilateral; Z90.49 Acquired absence of other specified parts of digestive tract; Z87.891 Personal history of nicotine dependence; Z88.8 Allergy status to other drugs, medicaments and biological substances

== ENCOUNTER 2018-11-03 08:26 | Emergency (ER) | payer OTHER ==
[~2018-11-03] VITALS: Ht 160 cm; Wt 59.9 kg
[2018-11-03 08:52] LABS: BE(vivo) 3.3 mmol/L (-2 to +3); HCO3 27.1 mmol/L (22.0-26.0); PCO2 37.6 mmHg (35.0-45.0); PO2 74.3 mmHg (80.0-100.0); pH 7.475 (7.360-7.450); sO2 95.8 % (92.0-98.0)
[2018-11-03 09:16] LABS: HEMATOCRIT 25.1 % (37.0-47.0); HEMOGLOBIN 8.6 gm/dL (12.0-15.0); MCH 29.9 pg (26.0-34.0); MCHC 34.1 g/dL (28.0-37.0); MCV 87.6 fL (80.0-100.0); PLATELET COUNT 240 thou/uL (150-400); RBC 2.86 mil/uL (4.20-5.00); RDW 19.7 % (10.5-14.5); WBC 8.5 thou/uL (4.0-11.0)
[2018-11-03 09:25] LABS: ANION GAP 12 mmol/L (7-16); BUN 37 mg/dL (7-18); CHLORIDE 102 mmol/L (98-107); CO2 30 mmol/L (21-32); GLUCOSE 79 mg/dL (74-106); POTASSIUM 4.3 mmol/L (3.5-5.1); SODIUM 144 mmol/L (136-145)
[2018-11-03 09:26] LABS: CREATININE 12.4 mg/dL (0.6-1.0)
[2018-11-03 09:42] LABS: TROPONIN-I <0.06 ng/mL (<0.06)
[2018-11-03 09:51] LABS: ABSOLUTE NEUTROPHILS 6.4 thou/uL (1.4-8.2); ANISOCYTOSIS 2+; PLATELET ESTIMATE NORMAL
--- NOTE | 2018-11-03 12:22 | EKG ---
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: 13 : 1955 Requested By: Anders Boswell Order Number: [id number] MD: Pedrito Albert Measurements Intervals [place] Rate: 77 P: 73 [place]: 189 QRS: 57 QRSD: 87 T: 42 QT: 415 QTc: 470 Interpretive Statements Sinus rhythm low voltage, extremity leads Compared to ECG 10/21/2018 17:33:32 First degree AV block no longer present Electronically Signed On 11-03-2018 12:22:19 TRANSPORTATION COORDINATOR by Pedrito Albert [email or web address] ��������������������������������������������� <ELECTRONICALLY SIGNED> ���������������������������������������� By: Pedrito Albert MD ��������������������������������������������� 11/03/18 1222 0836 0836 Pedrito Albert MD /LEOPOLDO
[2018-11-03 12:38] VITALS: BP 172/71
== END 2018-11-03 12:40 | disposition home or self-care (01) ==
LOC: ER 08:26
PROVIDERS: Emergency Medicine
DX: R06.00 Dyspnea, unspecified (principal); M54.9 Dorsalgia, unspecified; M32.9 Systemic lupus erythematosus, unspecified; I10 Essential (primary) hypertension; E78.5 Hyperlipidemia, unspecified; Z99.2 Dependence on renal dialysis; Z96.643 Presence of artificial hip joint, bilateral; Z90.49 Acquired absence of other specified parts of digestive tract; Z86.2 Personal history of diseases of the blood and blood-forming organs and certain disorders involving the immune mechanism; Z87.891 Personal history of nicotine dependence; Z88.1 Allergy status to other antibiotic agents

== ENCOUNTER 2018-12-20 12:44 | Emergency (ER) | payer OTHER ==
[~2018-12-20] VITALS: Ht 160 cm; Wt 59.9 kg
[2018-12-20] MEDS ORDERED: ONDANSETRON HCL4 M2 PO (13:19)
[2018-12-20 14:15] LABS: HEMATOCRIT 26.2 % (37.0-47.0); HEMOGLOBIN 8.9 gm/dL (12.0-15.0); MCH 29.9 pg (26.0-34.0); MCHC 33.9 g/dL (28.0-37.0); MCV 88.4 fL (80.0-100.0); RBC 2.97 mil/uL (4.20-5.00); RDW 23.5 % (10.5-14.5)
[2018-12-20 14:22] LABS: CALCIUM 9.4 mg/dL (8.5-10.1); CREATININE 12.8 mg/dL (0.6-1.0); POTASSIUM 4.6 mmol/L (3.5-5.1)
[2018-12-20 14:29] LABS: ALBUMIN 3.3 g/dL (3.4-5.0); TOTAL BILIRUBIN 0.5 mg/dL (<0.1-1.0); TOTAL PROTEIN 6.7 g/dL (6.4-8.2)
[2018-12-20 17:50] VITALS: BP 165/71
[2018-12-20] MEDS ORDERED: NORCO 10-325 T1 EACH PO (17:53)
--- NOTE | 2018-12-21 17:00 | EKG ---
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1955 Requested By: Yung Dumas Order Number: [id number] MD: Paras Morrissey Measurements Intervals [place] Rate: 64 P: 81 NC: 206 QRS: 68 QRSD: 87 T: 57 QT: 451 QTc: 466 Interpretive Statements Sinus rhythm Normal tracing Compared to ECG 11/03/2018 08:36:10 No significant changes Electronically Signed On 12-21-2018 17:00:12 CDT by Paras Morrissey [email or web address] ��������������������������������������������� <ELECTRONICALLY SIGNED> ���������������������������������������� By: Paras Morrissey MD, [facility] ��������������������������������������������� 12/21/18 1700 1400 [facility] Paras Morrissey MD, FACC /EPI
== END 2018-12-20 18:02 | disposition home or self-care (01) ==
LOC: ER 12:44
PROVIDERS: Physician Assistant
DX: S09.8XXA Other specified injuries of head, initial encounter (principal); T82.49XA Other complication of vascular dialysis catheter, initial encounter; M79.601 Pain in right arm; M54.2 Cervicalgia; E78.5 Hyperlipidemia, unspecified; M32.9 Systemic lupus erythematosus, unspecified; I10 Essential (primary) hypertension; Z96.641 Presence of right artificial hip joint; Z87.891 Personal history of nicotine dependence; Z88.1 Allergy status to other antibiotic agents; Z88.8 Allergy status to other drugs, medicaments and biological substances; Z96.642 Presence of left artificial hip joint; Z90.49 Acquired absence of other specified parts of digestive tract; Z86.2 Personal history of diseases of the blood and blood-forming organs and certain disorders involving the immune mechanism; W18.39XA Other fall on same level, initial encounter; Y93.E5 Activity, floor mopping and cleaning; Y92.009 Unspecified place in unspecified non-institutional (private) residence as the place of occurrence of the external cause; Y99.8 Other external cause status

== ENCOUNTER 2019-11-28 13:00 | Emergency (ER) | payer OTHER ==
[~2019-11-28] VITALS: Ht 160 cm; Wt 58.1 kg
[~2019-11-28 13:00] MED LIST changes: +ONDANSETRON HCL4 M2 PO
[2019-11-28 13:36] LABS: ABSOLUTE NEUTROPHILS 5.6 thou/uL (1.4-8.2); BASOPHILS 0.3 % (0.0-2.0); EOSINOPHILS 0.8 % (0.0-3.0); HEMATOCRIT 37.2 % (37.0-47.0); HEMOGLOBIN 12.5 gm/dL (12.0-15.0); LYMPHOCYTES 10.1 % (24.0-44.0); MCH 34.1 pg (26.0-34.0); MCHC 33.7 g/dL (28.0-37.0); MCV 101.2 fL (80.0-100.0); MONOCYTES 8.1 % (1.0-8.0); PLATELET COUNT 187 thou/uL (150-400); POLYS 80.7 % (36.0-66.0); RBC 3.67 mil/uL (4.20-5.00); RDW 17.5 % (10.5-14.5)
[2019-11-28 13:42] LABS: CALCIUM 10.7 mg/dL (8.5-10.1); CREATININE 9.4 mg/dL (0.6-1.0); POTASSIUM 5.1 mmol/L (3.5-5.1)
[2019-11-28 13:47] LABS: ALBUMIN 3.2 g/dL (3.4-5.0); TOTAL BILIRUBIN 0.4 mg/dL (<0.1-1.0); TOTAL PROTEIN 6.8 g/dL (6.4-8.2)
[2019-11-28] MEDS ORDERED: TACROLIMUS1 MG PO (14:01)
[2019-11-28] MEDS ORDERED: COREG6.25 MG PO (14:03)
[2019-11-28] MEDS ORDERED: PRILOSEC OTC20 MG PO (16:08)
[2019-11-28] MEDS ORDERED: ONDANSETRON HCL4 M2 PO (16:08)
[2019-11-28 16:50] VITALS: BP 136/66
--- NOTE | 2019-11-29 09:03 | EKG ---
[facility] [place] [address] ELECTROCARDIOGRAM REPORT Name: ARIN ANDRADE Room #: [facility]#: [id number] Admission: 11/28/19 Attend Phys: Discharge: 11/28/19 Date of : 57 Report #: [id number] THIS REPORT FOR: cc: Tessie Oakley MD, Nora P. MD Lundgren, Craig H. 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 : 1955 Requested By: Yung Dumas Order Number: [id number] MD: Paras Morrissey Measurements Intervals [place] Rate: 60 P: 83 NC: 192 QRS: 75 QRSD: 84 T: 71 QT: 450 QTc: 450 Interpretive Statements Sinus rhythm Baseline wander in lead(s) V1 Compared to ECG 12/20/2018 14:00:32 No significant changes Electronically Signed On 11-29-2019 9:01:44 CDT by Paras Morrissey [email or web address] <ELECTRONICALLY SIGNED> By: Paras Morrissey MD, [facility] 11/29/19 0901 1313 1313 Paras Morrissey MD, [facility] /EPI
== END 2019-11-28 16:55 | disposition home or self-care (01) ==
LOC: ER 13:00
PROVIDERS: Physician Assistant
DX: R10.84 Generalized abdominal pain (principal); R11.0 Nausea; R50.9 Fever, unspecified; N18.6 End stage renal disease; I12.0 Hypertensive chronic kidney disease with stage 5 chronic kidney disease or end stage renal disease; I10 Essential (primary) hypertension; E78.5 Hyperlipidemia, unspecified; F17.210 Nicotine dependence, cigarettes, uncomplicated; Z99.2 Dependence on renal dialysis; Z79.899 Other long term (current) drug therapy; Z90.49 Acquired absence of other specified parts of digestive tract